=== PATIENT | female | born 1950 | race Caucasian/White ===

== ENCOUNTER → 2017-09-08 | Outpatient (CLI) | payer MEDICARE ==
--- NOTE | 2017-09-08 16:35 | WOMENS IMAGING REPORT ---
EXAM DESCRIPTION: 3D DX MAMMO BILAT; U/S BREAST UNILAT LIMITED COMPLETED DATE/TIME: 09/08/2017 11:01 am; 09/08/2017 12:49 pm REASON FOR STUDY: UNSPECIFIED LUMP IN BREAST; N63.0; LT BREAST LUMP N63 N63.0 UNSPECIFIED LUMP IN U NSPECIFIED BREAST COMPARISON: None. TECHNIQUE: Standard craniocaudal and mediolateral oblique views of each breast recorded using digita l acquisition and breast tomosynthesis. Additional left breast 90 mediolateral view Additional left breast ultrasound Next LIMITATIONS: None. FINDINGS: RIGHT BREAST MASSES: No suspicious masses. CALCIFICATIONS: Benign calcifications are present ARCHITECTURAL DISTORTION: None. DEVELOPING DENSITY: None. ASYMMETRY: None noted. OTHER: No other significant findings. LEFT BREAST MASSES: No suspicious masses. CALCIFICATIONS: Benign calcifications are present ARCHITECTURAL DISTORTION: None. DEVELOPING DENSITY: None. ASYMMETRY: None noted. OTHER: No other significant finding. Read with the assistance of CAD: .[facility] - R2 Cenova Version 1.3 .[facility] - R2 Cenova Version 1.3 .[facility] - R2 Cenova Version 2.4 .[facility] R2 Cenova Version 2.4 .COUNT INCLUDES [facility] - R2 Laboratory Clerk Version 9.2 Left breast ultrasound: Patient has a palpable abnormality in the left breast 12 to 1 o'clock position about 3 to 4 cm from t he nipple. Ultrasound of this area demonstrates no focal findings. No cysts. No masses. No worris ome acoustic absorption. IMPRESSION: No mammographic/ tomosynthesis evidence for malignancy right breast. No mammographic/ tomosynthesis or ultrasound evidence for malignancy left breast. BREAST DENSITY: c. The breasts are heterogeneously dense, which may obscure small masses. BIRAD: 2 Benign findings. RECOMMENDATION: RECOMMENDED FOLLOW UP: Please continue yearly bilateral screening mammography/ tomos ynthesis in August 2018 SPECIFIC INTERVENTION/IMAGING/CONSULTATION RECOMMENDED:No additional intervention/ imaging/consultati on needed at this time. COMMUNICATION:Patient notified by letter COMMENT: The patient has been notified of the results by letter per MQSA requirements. Additional no tification policies are in place for contacting patient with suspicious or incomplete findings. Quality ID #225: The [employer] recommends an annual screening mammogram for women aged 40 years or over. This facility utilizes a reminder system to ensure that all patients receive reminder letters, and/or direct phone calls for appointments. This includes reminders for routine scr eening mammograms, diagnostic mammograms, or other Breast Imaging Interventions when appropriate. Th is patient will be placed in the appropriate reminder system. The [employer] (ACR) has developed recommendations for screening MRI of the breast s in certain patient populations, to be used in conjunction with mammography. Breast MRI surveillanc e may be appropriate for women with more than 20% lifetime risk of developing breast cancer as deter mined by genetic testing, significant family history of the disease, or history of mantle radiation f or Hodgkins Disease. ACR Practice Guidelines 2008. DBT Technology DBT is a type of tomographic mammography. With conventional mammography, overlapping breast tissue ma y make lesions difficult to detect, even with good compression. DBT uses an x-ray tube that rotates a round the breast, taking images at different angles. These images are then combined to create thin sl ices of the breast that the radiologist can view as a 3D reconstruction. The [employer] unit can perform full-field digital mammograms (2D imaging); or DBT (3D imaging); or both, in a combination mode that quickly performs both the mammogram and the tomosynthesis scan while the breast is still compressed. PQRS 6045F: Fluoroscopic imaging is not utilized for breast tomosynthesis. TECHNICAL DOCUMENTATION: FINDING NUMBER: (1) ASSESSMENT: (1) JOB ID: [id number] [employer]- All Rights Reserved Reading location - IP/workstation name: [email or web address]
--- NOTE | 2017-09-08 16:35 | WOMENS IMAGING REPORT ---
EXAM DESCRIPTION: 3D DX MAMMO BILAT; U/S BREAST UNILAT LIMITED COMPLETED DATE/TIME: 09/08/2017 11:01 am; 09/08/2017 12:49 pm REASON FOR STUDY: UNSPECIFIED LUMP IN BREAST; N63.0; LT BREAST LUMP N63 N63.0 UNSPECIFIED LUMP IN U NSPECIFIED BREAST COMPARISON: None. TECHNIQUE: Standard craniocaudal and mediolateral oblique views of each breast recorded using digita l acquisition and breast tomosynthesis. Additional left breast 90 mediolateral view Additional left breast ultrasound Next LIMITATIONS: None. FINDINGS: RIGHT BREAST MASSES: No suspicious masses. CALCIFICATIONS: Benign calcifications are present ARCHITECTURAL DISTORTION: None. DEVELOPING DENSITY: None. ASYMMETRY: None noted. OTHER: No other significant findings. LEFT BREAST MASSES: No suspicious masses. CALCIFICATIONS: Benign calcifications are present ARCHITECTURAL DISTORTION: None. DEVELOPING DENSITY: None. ASYMMETRY: None noted. OTHER: No other significant finding. Read with the assistance of CAD: .[facility] - R2 Cenova Version 1.3 .[facility] Imaging - R2 Cenova Version 1.3 .[facility] Imaging - R2 Cenova Version 2.4 .[facility] - R2 Cenova Version 2.4 .[facility] - R2 Level Glass Forming Machine Operator Version 9.2 Left breast ultrasound: Patient has a palpable abnormality in the left breast 12 to 1 o'clock position about 3 to 4 cm from t he nipple. Ultrasound of this area demonstrates no focal findings. No cysts. No masses. No worris ome acoustic absorption. IMPRESSION: No mammographic/ tomosynthesis evidence for malignancy right breast. No mammographic/ tomosynthesis or ultrasound evidence for malignancy left breast. BREAST DENSITY: c. The breasts are heterogeneously dense, which may obscure small masses. BIRAD: 2 Benign findings. RECOMMENDATION: RECOMMENDED FOLLOW UP: Please continue yearly bilateral screening mammography/ tomos ynthesis in August 2018 SPECIFIC INTERVENTION/IMAGING/CONSULTATION RECOMMENDED:No additional intervention/ imaging/consultati on needed at this time. COMMUNICATION:Patient notified by letter COMMENT: The patient has been notified of the results by letter per MQSA requirements. Additional no tification policies are in place for contacting patient with suspicious or incomplete findings. Quality ID #225: The [employer] recommends an annual screening mammogram for women aged 40 years or over. This facility utilizes a reminder system to ensure that all patients receive reminder letters, and/or direct phone calls for appointments. This includes reminders for routine scr eening mammograms, diagnostic mammograms, or other Breast Imaging Interventions when appropriate. Th is patient will be placed in the appropriate reminder system. The [employer] (ACR) has developed recommendations for screening MRI of the breast s in certain patient populations, to be used in conjunction with mammography. Breast MRI surveillanc e may be appropriate for women with more than 20% lifetime risk of developing breast cancer as deter mined by genetic testing, significant family history of the disease, or history of mantle radiation f or Hodgkins Disease. ACR Practice Guidelines 2008. DBT Technology DBT is a type of tomographic mammography. With conventional mammography, overlapping breast tissue ma y make lesions difficult to detect, even with good compression. DBT uses an x-ray tube that rotates a round the breast, taking images at different angles. These images are then combined to create thin sl ices of the breast that the radiologist can view as a 3D reconstruction. The [employer] unit can perform full-field digital mammograms (2D imaging); or DBT (3D imaging); or both, in a combination mode that quickly performs both the mammogram and the tomosynthesis scan while the breast is still compressed. PQRS 6045F: Fluoroscopic imaging is not utilized for breast tomosynthesis. TECHNICAL DOCUMENTATION: FINDING NUMBER: (1) ASSESSMENT: (1) JOB ID: [id number] [employer]- All Rights Reserved Reading location - IP/workstation name: [email or web address]
== END ==
LOC: WI 10:54
PROVIDERS: ATTEND Physician Assistant
DX: Z12.31 Encounter for screening mammogram for malignant neoplasm of breast (principal); N63.0 Unspecified lump in unspecified breast
CPT/HCPCS: 76642; 77066; G0279; 77062

== ENCOUNTER → 2018-09-28 | Outpatient (CLI) | payer MEDICARE ==
--- NOTE | 2018-09-28 15:56 | RADIOLOGY REPORT (SQ) ---
EXAM DESCRIPTION: VENOUS UNILATERAL LOWER COMPLETED DATE/TIME: 09/28/2018 3:48 pm REASON FOR STUDY: RIGHT THIGH PAIN M79.651 PAIN IN RIGHT THIGH COMPARISON: None. TECHNIQUE: Dynamic and static whitley scale and color images acquired of the right leg venous system. S elected spectral images acquired with additional compression and augmentation maneuvers. The contrala teral common femoral vein and saphenofemoral junction were also imaged. Images stored on PACS. LIMITATIONS: None. FINDINGS: RIGHT COMMON FEMORAL: Normal phasicity, compression and augmentation. No visualized echogenic material on g ray scale. No defects on color images. FEMORAL: Normal compression and augmentation. No visualized echogenic material on whitley scale. No defe cts on color images. POPLITEAL: Normal compression, augmentation. No visualized echogenic material on whitley scale. No defec ts on color images. CALF VESSELS: Normal compression, augmentation. No visualized echogenic material on whitley scale. No de fects on color images. GSV and SSV: Normal compression, augmentation. No visualized echogenic material on whitley scale. No def ects on color images. ANY DEEP VENOUS INSUFFICIENCY: Not evaluated. ANY EVIDENCE OF POPLITEAL CYST: No. OTHER: No other significant finding. LEFT COMMON FEMORAL VEIN AND SAPHENOFEMORAL JUNCTION: Normal phasicity, compression and augmentation. No visualized echogenic material on whitley scale. No de fects on color images. IMPRESSION: NO EVIDENCE OF DVT OR SVT IN THE RIGHT LEG. TECHNICAL DOCUMENTATION: JOB ID: [id number] [employer] All Rights Reserved Reading location - IP/workstation name: [email or web address]
== END ==
LOC: SP 15:04
PROVIDERS: ATTEND Physician Assistant
DX: M79.651 Pain in right thigh (principal)
CPT/HCPCS: 93971

== ENCOUNTER → 2019-03-23 | Outpatient (CLI) | payer MEDICARE ==
--- NOTE | 2019-03-23 10:53 | WOMENS IMAGING REPORT ---
EXAM DESCRIPTION: 3D SCREENING MAMMO BILAT COMPLETED DATE/TIME: 03/23/2019 10:01 am REASON FOR STUDY: Z12.31 SCREENING MAMMO Z12.31 ENCNTR SCREEN MAMMOGRAM FOR MALIGNANT NEOPLASM OF B RE COMPARISON: 2018 EXAM PARAMETERS: Views: Standard craniocaudal and mediolateral oblique views of each breast recorded using digital acquisition and breast tomosynthesis. Read with the assistance of CAD. .[facility] - R2 Provider Relations Specialist Version 9.2 LIMITATIONS: Left positioning. FINDINGS: No suspicious masses, suspicious calcifications or architectural distortion. No areas of c oncern. IMPRESSION: NEGATIVE MAMMOGRAM. BIRADS 1. BREAST DENSITY: b. There are scattered areas of fibroglandular density. BIRAD: ASSESSMENT: 1 NEGATIVE RECOMMENDATION: ROUTINE SCREENING COMMENT: The patient has been notified of the results by letter per MQSA requirements. Additional no tification policies are in place for contacting patient with suspicious or incomplete findings. Quality ID #225: The [employer] recommends an annual screening mammogram for women aged 40 years or over. This facility utilizes a reminder system to ensure that all patients receive reminder letters, and/or direct phone calls for appointments. This includes reminders for routine scr eening mammograms, diagnostic mammograms, or other Breast Imaging Interventions when appropriate. Th is patient will be placed in the appropriate reminder system. TECHNICAL DOCUMENTATION: FINDING NUMBER: (1) ASSESSMENT: (1) JOB ID: [id number] [employer]- All Rights Reserved Reading location - IP/workstation name: [email or web address]
== END ==
LOC: WI 10:08
PROVIDERS: ATTEND Physician Assistant
DX: Z12.31 Encounter for screening mammogram for malignant neoplasm of breast (principal)
CPT/HCPCS: 77063; 77067

== ENCOUNTER 2019-11-11 13:39 | Emergency (ER) | payer MEDICARE ==
--- NOTE | 2019-11-11 14:04 | ER Document Report ---
ED Medical Screen (RME) - General Chief Complaint: Arm Pain Stated Complaint: arm pain Time Seen by Provider: 11/11/19 14:04 Primary Care Provider: MARSHALL WALTERS PA [Primary Care Provider] - Follow up as needed Mode of Arrival: Wheelchair Information source: Patient Notes: 69-year-old female presented to ED for infected right elbow. She states [facility] her [facility] here that she would need IV antibiotics. She is alert oriented respirations regular and unlabored speaking in full sentences. She is able to walk with a even steady gait. She states the medical history should all be in the chart and does not want to discuss it at this time. I have greeted and performed a rapid initial assessment of this patient. A comprehensive ED assessment and evaluation of the patient, analysis of test results and completion of medical decision making process will be conducted by an additional ED providers. TRAVEL OUTSIDE OF THE [place] IN LAST 30 DAYS: No Physical Exam - Vital signs Vitals: Temp Pulse Resp BP Pulse Ox 98.3 F 102 H 20 148/98 H 96 11/11/19 13:51 11/11/19 13:51 11/11/19 13:51 11/11/19 13:51 11/11/19 13:51 Course - Vital Signs Vital signs: Temp Pulse Resp BP Pulse Ox 98.3 F 102 H 20 148/98 H 96 11/11/19 13:51 11/11/19 13:51 11/11/19 13:51 11/11/19 13:51 11/11/19 13:51 Doctor's Discharge - Discharge Referrals: MARSHALL WALTERS PA [Primary Care Provider] - Follow up as needed
[2019-11-11] MEDS ORDERED: NORMAL SALINE 1000 ML 1,000 ML IV ONE (14:06)
[2019-11-11] MEDS ORDERED: LIDOCAINE 1%/EPINEPHRINE INJ 20 ML VIAL INJ ONE (14:34)
--- NOTE | 2019-11-11 14:39 | ER Document Report ---
ED Extremity Problem, Upper <ERINN NIEVES - Last Filed: 11/11/19 20:49> - General Mode of Arrival: Wheelchair Information source: Patient TRAVEL OUTSIDE OF THE [place] IN LAST 30 DAYS: No <RONNY MARTINEZ - Last Filed: 11/12/19 06:15> - General Chief Complaint: Arm Pain Stated Complaint: arm pain Time Seen by Provider: 11/11/19 14:04 Primary Care Provider: MARSHALL WALTERS PA [NO LOCAL MD] - Follow up as needed MANISH WALL DO [ACTIVE STAFF] - Follow up as needed Notes: HPI: 69-year-old female who presents today stating some nontraumatic pain to the right elbow starting yesterday. She denies any fevers or vomiting. She states it is just around the tip of the elbow. No history of diabetes. She believes it is slightly swollen. ROS: See HPI All other review of systems reviewed and otherwise negative Reviewed vital signs and nursing note as charted by RN. PHYSICAL EXAM: CONSTITUTIONAL: Alert and oriented and responds appropriately to questions. Well-appearing; well-nourished HEAD: Normocephalic; atraumatic CARD: Regular rate and rhythm; no murmurs; symmetric distal pulses RESP: Normal chest excursion without splinting or tachypnea; breath sounds clear and equal bilaterally ABD/GI: Normal bowel sounds; non-distended; soft, non-tender; no palpable organomegaly or masses BACK: The back appears normal and is non-tender to palpation EXT: Patient has some mild swelling to the right lateral elbow. Patient has full range of motion with full flexion and extension at the elbow. Some mild tenderness to the bursa of the right elbow with minimal surrounding erythema SKIN: See above NEURO: CN 2-12 intact; 5/5 bilateral upper and lower extremity strength with sensation intact to light touch PSYCH: The patient's mood and manner are appropriate. Grooming and personal hygiene are appropriate (RONNY MARTINEZ) - Related Data Allergies/Adverse Reactions: Unable to Assess Allergy (Unverified 11/11/19 18:40) Past Medical History - General Information source: Patient - Social History Smoking Status: Unknown if Ever Smoked Family History: Reviewed & Not Pertinent <RONNY MARTINEZ - Last Filed: 11/12/19 06:15> Physical Exam - Vital signs Vitals: Temp Pulse Resp BP Pulse Ox 98.3 F 102 H 20 148/98 H 96 11/11/19 13:51 11/11/19 13:51 11/11/19 13:51 11/11/19 13:51 11/11/19 13:51 Course - Laboratory Result Diagrams: 11/11/19 14:20 11/11/19 14:20 <ERINN NIEVES - Last Filed: 11/11/19 20:49> - Laboratory Result Diagrams: 11/11/19 14:20 11/11/19 14:20 <JUANRONNY - Last Filed: 11/12/19 06:15> - Re-evaluation Re-evalutation: 11/11/19 18:09 I assumed care of this patient, awaiting blood cultures and cell counts on bursa aspiration of the right elbow performed by Dr. Maldonado. Patient had over 20,000 red, approximately 1100 whites. Cultures are still pending. During the course of her stay here in the emergency department, this patient, with whom we had significant difficulty obtaining IV access, ripped out her IV to go to the bathroom. She did not receive the IV vancomycin. This patient does have a leukocytosis, but no significant shift. She is afebrile. She is not vomiting. I discussed appropriate coverage for community-acquired MRSA and other gram positives with clindamycin with Dr. Wall, on-call orthopedic surgeon. He ag yumiko that that sounded reasonable. Of course he recommends that the patient return to the ED with any worsening. This was explained to the patient. Otherwise I will send her with a prescription for clindamycin, she is to follow- up with Dr. Wall the beginning of the next week, return to the ED with worsening or new concerning symptoms of any sort. (ERINN NIEVES) 11/11/19 14:38 Given the above history and physical examination, with full range of motion of the elbow, afebrile, without trauma, I am concerned about the possibility of an infected bursa. We will obtain basic labs and I will perform an aspiration of the right bursa sac and start the patient on antibiotics. Will most likely consult orthopedics. 11/11/19 15:09 I did perform an aspiration of the right elbow bursa. Straw-colored blood- tinged fluid obtained. This was obtained on 1 attempt without complication. White blood cell count as recorded. Blood cultures have been sent. Awaiting results. I have provided the initial dose of antibiotics. (RONNY MARTINEZ) - Vital Signs Vital signs: Temp Pulse Resp BP Pulse Ox 98.4 F 62 12 130/72 H 98 11/11/19 18:35 11/11/19 18:35 11/11/19 18:35 11/11/19 18:35 11/11/19 18:35 - Laboratory Laboratory results interpreted by me: 11/11/19 11/11/19 11/11/19 14:20 14:20 14:20 WBC 13.2 H Lymph % (Auto) 5.3 L Absolute Neuts (auto) 11.5 H Seg Neutrophils % 87.5 H ESR 32 H Sodium 135.4 L Glucose 131 H C-Reactive Protein 11/11/19 14:20 WBC Lymph % (Auto) Absolute Neuts (auto) Seg Neutrophils % ESR Sodium Glucose C-Reactive Protein 41.7 H Procedures - Joint Aspiration Right Elbow Consent obtained: Yes Joint aspiration pre-procedure: Chloraprep applied Amount/type of drainage: 4 cc Number of attempts: 1 Complications: No <RONNY MARTINEZ - Last Filed: 11/12/19 06:15> - Joint Aspiration Right Elbow Notes: This was a right bursa aspiration (RONNY MARTINEZ) Discharge <ERINN NIEVES - Last Filed: 11/11/19 20:49> <RONNY MARTINEZ - Last Filed: 11/12/19 06:15> - Discharge Clinical Impression: Septic olecranon bursitis Qualifiers: Laterality: right Qualified Code(s): M71.121 - Other infective bursitis, right elbow Cellulitis Qualifiers: Site of cellulitis: extremity Site of cellulitis of extremity: upper extremity Laterality: right Qualified Code(s): L03.113 - Cellulitis of right upper limb Condition: Stable Disposition: HOME, SELF-CARE Instructions: Cellulitis ([facility]) Additional Instructions: It appears you have an infected bursa, for a small fluid-filled sac of your elbow, that has an infection in it. This infection is spread to the surrounding skin of your arm. It is very important you take all of the antibiotics as prescribed. If you develop increased pain, redness, fevers, vomiting, or any other new or concerning symptoms, please return immediately to the emergency department for evaluation. Otherwise, you can follow-up with Dr. Manish Wall, on-call orthopedist, at the beginning of next week. Prescriptions: Clindamycin HCl 300 mg PO TID #21 capsule Referrals: MARSHALL WALTERS PA [NO LOCAL MD] - Follow up as needed MANISH WALL DO [ACTIVE STAFF] - Follow up as needed
--- NOTE | 2019-11-11 14:44 | RADIOLOGY REPORT (SQ) ---
EXAM DESCRIPTION: ELBOW RIGHT OVER 2 VIEWS IMAGES COMPLETED DATE/TIME: 11/11/2019 2:20 pm REASON FOR STUDY: swelling infected COMPARISON: None. NUMBER OF VIEWS: Four views. TECHNIQUE: AP, lateral, and both oblique radiographic images acquired of the right elbow. LIMITATIONS: None. FINDINGS: MINERALIZATION: Normal. BONES: No acute fracture or dislocation. Mild ulnohumeral and radiohumeral joint osteoarthritis. Mi nimal cortical prominence of the medial epicondyle, which may be related to epicondylitis. No worris ome bone lesions. No aggressive periosteal reaction or cortical destruction. JOINT: No effusion. SOFT TISSUES: Olecranon/extensor surface soft tissue swelling. OTHER: No other significant finding. IMPRESSION: Olecranon/extensor extensor surface elbow soft tissue swelling without radiographic find ings of acute osteomyelitis or other acute osseous abnormality. TECHNICAL DOCUMENTATION: JOB ID: [id number] 2010 [employer]- All Rights Reserved Reading location - IP/workstation name: [email or web address]
[2019-11-11 14:57] LABS: ABSOLUTE BASOPHILS # (AUTO) 0.1 10^3/uL (0.0-0.2); ABSOLUTE EOSINOPHILS # (AUTO) 0.1 10^3/uL (0.0-0.6); ABSOLUTE LYMPHOCYTES (AUTO) 0.7 10^3/uL (0.5-4.7); ABSOLUTE MONOCYTES (AUTO) 0.7 10^3/uL (0.1-1.4); ABSOLUTE NEUT (AUTO) 11.5 10^3/uL (1.7-8.2); BASOPHILS % (AUTO) 0.5 % (0-2); EOSINOPHILS % (AUTO) 1.1 % (0-6); HEMATOCRIT 43.4 % (36.0-47.0); HEMOGLOBIN 14.8 g/dL (12.0-15.5); LYMPHOCYTES % (AUTO) 5.3 % (13-45); MEAN CORPUSCULAR HEMOGLOBIN 32.9 pg (27.0-33.4); MEAN CORPUSCULAR HGB CONC 34.1 g/dL (32.0-36.0); MEAN CORPUSCULAR VOLUME 96 fl (80-97); MONOCYTES % (AUTO) 5.6 % (3-13); PLATELET COUNT 229 10^3/uL (150-450); RED BLOOD COUNT 4.51 10^6/uL (3.72-5.28); RED CELL DISTRIBUTION WIDTH 13.5 % (11.5-14.0); SEGMENTED NEUTROPHILS % (AUTO) 87.5 % (42-78); TOTAL CELLS COUNTED % (AUTO) 100 %; WHITE BLOOD COUNT 13.2 10^3/uL (4.0-10.5)
[2019-11-11 15:11] LABS: ALBUMIN 4.5 g/dL (3.5-5.0); ALKALINE PHOSPHATASE 86 U/L (38-126); ANION GAP 6 (5-19); ASPARTATE AMINO TRANSFERASE 36 U/L (14-36); BILIRUBIN,DIRECT 0.2 mg/dL (0.0-0.4); BILIRUBIN,TOTAL 0.7 mg/dL (0.2-1.3); BLOOD UREA NITROGEN 19 mg/dL (7-20); CALCIUM 9.6 mg/dL (8.4-10.2); CARBON DIOXIDE 29 mmol/L (22-30); CHLORIDE 100 mmol/L (98-107); GLUCOSE 131 mg/dL (75-110); POTASSIUM 4.9 mmol/L (3.6-5.0); TOTAL PROTEIN 7.4 g/dL (6.3-8.2)
[2019-11-11] MEDS ORDERED: VANCOMYCIN HCL INJ 1000 MG VIAL IV ONE (15:11)
[2019-11-11 15:18] LABS: APPEARANCE,URINE SLIGHTLY-CLOUDY; BILIRUBIN,URINE NEGATIVE (NEGATIVE); COLOR,URINE YELLOW; GLUCOSE, URINE NEGATIVE (NEGATIVE); KETONES,URINE NEGATIVE (NEGATIVE); LEUKOCYTE ESTERASE,URINE NEGATIVE (NEGATIVE); NITRITE,URINE NEGATIVE (NEGATIVE); PROTEIN,URINE NEGATIVE (NEGATIVE); URINE SPECIFIC GRAVITY 1.016; UROBILINOGEN,URINE NEGATIVE mg/dL (<2.0)
[2019-11-11 16:10] LABS: FLUID APPEARANCE TURBID; FLUID COLOR RED; FLUID SOURCE ELBOW; FLUID TYPE SYNOVIAL; FLUID VISCOSITY SLIGHTLY VISCOUS
[2019-11-11] MEDS ORDERED: CLINDAMYCIN PHOSPHATE INJ 300 MG/2 ML SDV IM ONE (18:08)
[2019-11-11 18:37] VITALS: BP 130/72
== END 2019-11-11 18:30 | disposition home or self-care (01) ==
LOC: ER 13:39
DX: M70.21 Olecranon bursitis, right elbow (principal); L03.113 Cellulitis of right upper limb
CPT/HCPCS: 99283; 96372; 96361; 96365; 96366; 36415; 87040; 87205; 87070; 85025; 85652; 89050; 87075; 86140; 87077; 80053; 81001; 87150 ×26; 73080; 20605; J3490; J7030; J3370; 87186

== ENCOUNTER 2019-11-13 17:14 | Inpatient (IN) | payer MEDICARE ==
--- NOTE | 2019-11-13 17:31 | ER Document Report ---
ED Medical Screen (RME) - General Chief Complaint: Wound Infection Stated Complaint: POSSIBLE ARM INFECTION Time Seen by Provider: 11/13/19 17:29 Primary Care Provider: MIKE GONZALEZ MD [Primary Care Provider] - Follow up as needed Mode of Arrival: Ambulatory Information source: Patient Notes: 69-year-old female presented to ED for increasing infection pain and swelling to her right elbow. She was seen on Wednesday and had an I&D done of her elbow with fluid removed. She now has redness down to her wrist elbow is much larger and she states that it is much more painful. Patient states that the antibiotics they gave her are not doing her any good and she is having more pain. Patient is alert oriented respirations regular nonlabored speaking in full sentences. I have greeted and performed a rapid initial assessment of this patient. A comprehensive ED assessment and evaluation of the patient, analysis of test results and completion of medical decision making process will be conducted by an additional ED providers. TRAVEL OUTSIDE OF THE [place] IN LAST 30 DAYS: No - Related Data Allergies/Adverse Reactions: Unable to Assess Allergy (Unverified 11/11/19 18:40) Physical Exam - Vital signs Vitals: Temp Pulse Resp BP Pulse Ox 97.4 F 105 H 18 131/85 H 94 11/13/19 17:23 11/13/19 17:23 11/13/19 17:23 11/13/19 17:23 11/13/19 17:23 Course - Vital Signs Vital signs: Temp Pulse Resp BP Pulse Ox 97.4 F 105 H 18 131/85 H 94 11/13/19 17:23 11/13/19 17:23 11/13/19 17:23 11/13/19 17:23 11/13/19 17:23 Doctor's Discharge - Discharge Referrals: MIKE GONZALEZ MD [Primary Care Provider] - Follow up as needed
[2019-11-13 17:57] LABS: ABSOLUTE BASOPHILS # (AUTO) 0.1 10^3/uL (0.0-0.2); ABSOLUTE EOSINOPHILS # (AUTO) 0.5 10^3/uL (0.0-0.6); ABSOLUTE LYMPHOCYTES (AUTO) 1.2 10^3/uL (0.5-4.7); ABSOLUTE MONOCYTES (AUTO) 0.9 10^3/uL (0.1-1.4); ABSOLUTE NEUT (AUTO) 10.9 10^3/uL (1.7-8.2); BASOPHILS % (AUTO) 0.4 % (0-2); EOSINOPHILS % (AUTO) 3.9 % (0-6); HEMATOCRIT 43.6 % (36.0-47.0); HEMOGLOBIN 14.8 g/dL (12.0-15.5); LYMPHOCYTES % (AUTO) 8.9 % (13-45); MEAN CORPUSCULAR HEMOGLOBIN 33.1 pg (27.0-33.4); MEAN CORPUSCULAR HGB CONC 34.1 g/dL (32.0-36.0); MEAN CORPUSCULAR VOLUME 97 fl (80-97); MONOCYTES % (AUTO) 6.7 % (3-13); PLATELET COUNT 322 10^3/uL (150-450); RED BLOOD COUNT 4.49 10^6/uL (3.72-5.28); RED CELL DISTRIBUTION WIDTH 13.7 % (11.5-14.0); SEGMENTED NEUTROPHILS % (AUTO) 80.1 % (42-78); TOTAL CELLS COUNTED % (AUTO) 100 %; WHITE BLOOD COUNT 13.6 10^3/uL (4.0-10.5)
--- NOTE | 2019-11-13 18:01 | RADIOLOGY REPORT (SQ) ---
EXAM DESCRIPTION: ELBOW RIGHT OVER 2 VIEWS IMAGES COMPLETED DATE/TIME: 11/13/2019 5:51 pm REASON FOR STUDY: Red swollen painful right upper extremity COMPARISON: None. NUMBER OF VIEWS: Four views. TECHNIQUE: AP, lateral, and both oblique radiographic images acquired of the right elbow. LIMITATIONS: None. FINDINGS: MINERALIZATION: Normal. BONES: No acute fracture or dislocation. No worrisome bone lesions. JOINT: No effusion. SOFT TISSUES: Dorsal swelling over the olecranon. OTHER: No other significant finding. IMPRESSION: Dorsal swelling over the olecranon. Possible bursitis. TECHNICAL DOCUMENTATION: JOB ID: [id number] 2010 [employer]- All Rights Reserved Reading location - IP/workstation name: [email or web address]
[2019-11-13 18:48] LABS: ERYTHROCYTE SEDIMENTATION RATE 74 mm/hr (0-30)
[2019-11-13 19:06] LABS: ALBUMIN 4.3 g/dL (3.5-5.0); ALKALINE PHOSPHATASE 114 U/L (38-126); ANION GAP 9 (5-19); ASPARTATE AMINO TRANSFERASE 32 U/L (14-36); BILIRUBIN,DIRECT 0.2 mg/dL (0.0-0.4); BILIRUBIN,TOTAL 0.4 mg/dL (0.2-1.3); BLOOD UREA NITROGEN 33 mg/dL (7-20); CALCIUM 9.5 mg/dL (8.4-10.2); CARBON DIOXIDE 28 mmol/L (22-30); CHLORIDE 100 mmol/L (98-107); GLUCOSE 132 mg/dL (75-110); TOTAL PROTEIN 7.3 g/dL (6.3-8.2)
[2019-11-13 19:19] LABS: C-REACTIVE PROTEIN 200.6 mg/L (<10.0)
[2019-11-13] MEDS ORDERED: VANCOMYCIN HCL INJ 1000 MG VIAL IV ONE (21:56)
[2019-11-13] MEDS ORDERED: RINGERS SOLUTION,LACTATED 1,000 ML IV ONE (22:01)
--- NOTE | 2019-11-13 22:01 | ER Document Report ---
ED General - General Chief Complaint: Wound Infection Stated Complaint: POSSIBLE ARM INFECTION Time Seen by Provider: 11/13/19 17:29 Primary Care Provider: MIKE GONZALEZ MD [Primary Care Provider] - Follow up as needed Mode of Arrival: Ambulatory Notes: 69-year-old female [id number] presents with worsening right arm swelling and elbow swelling that is now going down toward her wrist and up toward her armpit. She was seen here 2 days ago for a septic bursitis, which was tapped, and she refused IV antibiotics pulled out her IV was discharged with clindamycin after discussion with orthopedics. Blood cultures were sent as were cultures of the fluid aspirated from her right olecranon bursa. She does not have diabetes. She says that the medicine is making her dizzy and she cannot take it anymore. She also says she has a fever. Afebrile here. The patient has NO history of travel to high-risk locations for COVID-19 or contact with persons under investigation for or confirmed positive for COVID-19. TRAVEL OUTSIDE OF THE [place] IN LAST 30 DAYS: No - Related Data Allergies/Adverse Reactions: celecoxib Allergy (Verified 11/13/19 17:35) duloxetine Allergy (Verified 11/13/19 17:35) naproxen Allergy (Verified 11/13/19 17:35) Past Medical History - General Information source: Patient - Social History Smoking Status: Current Every Day Smoker Family History: Reviewed & Not Pertinent Patient has homicidal ideation: No Review of Systems - Review of Systems Notes: REVIEW OF SYSTEMS GEN: Fever chills and dizziness ENT: Denies sore throat, nasal discharge, ear pain EYES: Denies blurry vision, eye pain, discharge CV: Denies chest pain, palpitations, edema RESP: Denies cough, shortness of breath, wheezing GI: Denies abdominal pain, nausea, vomiting, diarrhea MSK: Elbow arm pain SKIN: Denies rash, skin lesions LYMPH: Denies swollen glands/lymph nodes NEURO: Denies headache, focal weakness or numbness, dizziness PSYCH: Denies depression, suicidal or homicidal ideation PHYSICAL EXAMINATION General: No acute distress, well-nourished Head: Atraumatic, normocephalic ENT: Mouth normal, oropharynx moist, no exudates or tonsillar enlargement Eyes: Conjunctiva normal, pupils equal, lids normal Neck: No JVD, supple, no guarding CVS: Normal rate, regular rhythm, no murmurs Resp: No resp distress, equal and normal breath sounds bilaterally GI: Nondistended, soft, no tenderness to palpation, no rebound or guarding Ext: Area of nonpalpable erythema from the volar forearm wrist encircling the right elbow and streaking up the medial right biceps region without lymphadeno randy. Positive tenderness, there is no drainage or fluctuance over the bursa itself. Back: No CVA or midline TTP Skin: No rash, warm Lymphatic: No lymphadeopathy noted Neuro: Awake, alert. Face symmetric. GCS 15. Physical Exam - Vital signs Vitals: Temp Pulse Resp BP Pulse Ox 97.4 F 105 H 18 131/85 H 94 11/13/19 17:23 11/13/19 17:23 11/13/19 17:23 11/13/19 17:23 11/13/19 17:23 Course - Re-evaluation Re-evalutation: 11/13/19 21:59 Septic bursitis with lymphangitis refractory to aspiration and p.o. antibiotics crossing the joint, has tachycardia and leukocytosis as her s criteria she has at this time, but will require IV Vanco elevation and admission. Will outline area, elevate the arm and discussed with Gus for admission. In looking at her cultures from yesterday there is nothing going out of the bursa but she had 2 different both staph and strep growing out of her blood cultures unclear if this is contaminant but will need sensitivities. Volume resuscitate as well. 11/13/19 22:01 11/13/19 22:32 Discussed with Gus who accepts and ask for Ortho consult Discussed with Louise who will see in the morning and agrees with plan - Vital Signs Vital signs: Temp Pulse Resp BP Pulse Ox 97.4 F 105 H 18 131/85 H 94 11/13/19 17:28 11/13/19 17:23 11/13/19 17:23 11/13/19 17:23 11/13/19 17:23 - Laboratory Result Diagrams: 11/13/19 17:31 11/13/19 17:45 Laboratory results interpreted by me: 11/13/19 11/13/19 17:31 17:45 WBC 13.6 H Lymph % (Auto) 8.9 L Absolute Neuts (auto) 10.9 H Seg Neutrophils % 80.1 H ESR 74 H BUN 33 H Creatinine 1.34 H Est GFR ( Amer) 47 L Est GFR (MDRD) Non-Af 39 L Glucose 132 H C-Reactive Protein 200.6 H Critical Care Note - Critical Care Note Total time excluding time spent on procedures (mins): 31 Comments: The above patient is critically ill. Not including procedures, but including direct re-evaluations, speaking with patient and/or consultants, interpreting results, and documenting, I spent the total amount of minute listed listed above on critical care time Discharge - Discharge Clinical Impression: Septic olecranon bursitis Qualifiers: Laterality: right Qualified Code(s): M71.121 - Other infective bursitis, right elbow Sepsis Qualifiers: Sepsis type: sepsis due to unspecified organism Sepsis acute organ dysfunction status: without acute organ dysfunction Qualified Code(s): A41.9 - Sepsis, unspecified organism Condition: Fair Disposition: ADMITTED INPATIENT Admitting Provider: Gus Unit Admitted: Medical Floor Referrals: MIKE GONZALEZ MD [Primary Care Provider] - Follow up as needed
[2019-11-13] MEDS ORDERED: OXYCODONE-ACETAMINOPHEN 5-325 MG TABLET PO ONE (22:31)
[2019-11-13] MEDS ORDERED: ACETAMINOPHEN 325 MG TABLET PO PRN (22:33)
[2019-11-13] MEDS ORDERED: AMPICILLIN SOD/SULBACTAM 3 GM VIAL IV PRN (22:44)
[2019-11-13 23:48] LABS: ANION GAP 7 (5-19); BLOOD UREA NITROGEN 37 mg/dL (7-20); CALCIUM 8.9 mg/dL (8.4-10.2); CARBON DIOXIDE 25 mmol/L (22-30); CHLORIDE 103 mmol/L (98-107); GLUCOSE 136 mg/dL (75-110); POTASSIUM 4.3 mmol/L (3.6-5.0)
[2019-11-14] MEDS ORDERED: AMPICILLIN SODIUM/SULBACTAM NA 3 GM in NORMAL SALINE 100 ML IV SCH ×2
[2019-11-14] MEDS ORDERED: RINGERS SOLUTION,LACTATED 1,000 ML IV ONE (02:15)
[2019-11-14] MEDS: AMPICILLIN SODIUM/SULBACTAM NA 3 GM in NORMAL SALINE 100 ML IV SCH ×4 (02:22→20:17)
[2019-11-14] MEDS: ONDANSETRON ODT 4 MG TAB (6 TAB/ER DISP) PO SCH ×5 (02:36→23:02)
[2019-11-14] MEDS: OXYCODONE-ACETAMINOPHEN 5-325 MG TABLET PO PRN ×5 (02:37→23:10)
[2019-11-14] MEDS: PANTOPRAZOLE SODIUM 20 MG TABLET.DR PO SCH (05:34)
[2019-11-14] MEDS: NORMAL SALINE 1000 ML 1,000 ML IV PRN (05:34)
[2019-11-14 06:10] LABS: ABSOLUTE EOSINOPHILS # (AUTO) 0.6 10^3/uL (0.0-0.6); ABSOLUTE LYMPHOCYTES (AUTO) 1.4 10^3/uL (0.5-4.7); ABSOLUTE NEUT (AUTO) 6.9 10^3/uL (1.7-8.2); BASOPHILS % (AUTO) 0.4 % (0-2); EOSINOPHILS % (AUTO) 6.2 % (0-6); HEMATOCRIT 38.3 % (36.0-47.0); HEMOGLOBIN 12.9 g/dL (12.0-15.5); LYMPHOCYTES % (AUTO) 13.7 % (13-45); MEAN CORPUSCULAR HEMOGLOBIN 32.8 pg (27.0-33.4); MEAN CORPUSCULAR HGB CONC 33.8 g/dL (32.0-36.0); MEAN CORPUSCULAR VOLUME 97 fl (80-97); PLATELET COUNT 240 10^3/uL (150-450); RED BLOOD COUNT 3.95 10^6/uL (3.72-5.28); RED CELL DISTRIBUTION WIDTH 13.4 % (11.5-14.0); SEGMENTED NEUTROPHILS % (AUTO) 69.7 % (42-78); TOTAL CELLS COUNTED % (AUTO) 100 %
--- NOTE | 2019-11-14 07:19 | PDOC CONSULTATION ---
Consultation Consult Date: 11/14/19 Provider Consulted: LEWIS RODRIGUEZ History of Present Illness Admission Date/PCP: 11/13/19 22:46 MIKE GONZALEZ MD Patient complains of: Right arm pain and swelling History of Present Illness: AUDIE PETERSEN is a 69 year old female who developed swelling of her right arm on this past 11/10/2019. She was seen in emergency room the following day where she was found to have olecranon bursitis aspiration was performed but cultures up to this point have been negative. During her ER visit her IV was pulled and thus was unable to obtain IV antibiotics and subsequently started on p.o. antibiotics. Over the next 24-40 hours patient's redness and swelling w orsened. She states since starting the IV antibiotics yesterday this has shown improvement. It did extend down to the wrist which is now improved as well. Denies any pain in the elbow. Denies trauma. Current pain 2/5. Denies fever chills or sweats this morning. Although states she did have a fever upon presentation emergency room despite remaining afebrile. Past Medical History Cardiac Medical History: Reports: Hypertension Musculoskeltal Medical History: Reports: Arthritis Psychiatric Medical History: Denies: Depression Social History Smoking Status: Current Every Day Smoker Cigarettes Packs Per Day: 1 Electronic Cigarette use?: No Number of Years Smokin Last Time Smoked: 11/13/19 Frequency of Alcohol Use: Rare Hx Recreational Drug Use: No Drugs: None Hx Prescription Drug Abuse: No Family History Family History: Reviewed & Not Pertinent Parental Family History Reviewed: No Children Family History Reviewed: No Sibling(s) Family History Reviewed.: No Medication/Allergy Home Medications: Clindamycin HCl 300 mg PO TID #21 capsule 11/11/19 Albuterol Sulfate [Proventil Hfa] 6.7 puff PO Q4 PRN 11/14/19 Cyanocobalamin (Vitamin B-12) [B-12] 2,500 mcg SL DAILY 11/14/19 Gabapentin [Neurontin 300 mg Capsule] 300 mg PO Q8 11/14/19 Levorphanol Tartrate 3 tab PO TID 11/14/19 Loratadine [Allergy Relief] 10 mg PO DAILY 11/14/19 Meloxicam [Mobic] 15 mg PO BID 11/14/19 Metoprolol Succinate [Toprol Xl 50 mg Tab.sr] 50 mg PO DAILY 11/14/19 Multivit-Min/Iron/Folic/Lutein [Centrum Silver Women Tablet] 1 each PO 11/14/19 Pantoprazole Sodium [Protonix [address] Tablet] 40 mg PO QAMPM 11/14/19 Allergies/Adverse Reactions: celecoxib Allergy (Verified 11/13/19 17:35) duloxetine Allergy (Verified 11/13/19 17:35) naproxen Allergy (Verified 11/13/19 17:35) Review of Systems Constitutional: ABSENT: chills, fever(s), headache(s), weight gain, weight loss Eyes: ABSENT: visual disturbances Ears: ABSENT: hearing changes Cardiovascular: ABSENT: chest pain, dyspnea on exertion, edema, orthropnea, palpitations Respiratory: ABSENT: cough, hemoptysis Gastrointestinal: ABSENT: abdominal pain, constipation, diarrhea, hematemesis, hematochezia, nausea, vomiting Genitourinary: ABSENT: dysuria, hematuria Musculoskeletal: PRESENT: as per HPI Integumentary: ABSENT: rash, wounds Neurological: ABSENT: abnormal gait, abnormal speech, confusion, dizziness, focal weakness, syncope Psychiatric: ABSENT: anxiety, depression, homidical ideation, suicidal ideation Endocrine: ABSENT: cold intolerance, heat intolerance, menstrual abnormalities, polydipsia, polyuria Hematologic/Lymphatic: ABSENT: easy bleeding, easy bruising, lymphadenopathy Physical Exam Vital Signs: Temp Pulse Resp BP Pulse Ox 97.7 F 83 17 111/51 L 93 11/14/19 00:46 11/14/19 00:46 11/14/19 00:46 11/14/19 00:46 11/14/19 00:46 Intake & Output 11/13/19 11/14/19 11/15/19 06:59 06:59 06:59 Intake Total 1100 Output Total 200 Balance 900 Weight 87.3 kg General appearance: PRESENT: no acute distress, well-developed, well-nourished Head exam: PRESENT: atraumatic, normocephalic Eye exam: PRESENT: conjunctiva pink, EOMI, PERRLA. ABSENT: scleral icterus Ear exam: PRESENT: normal external ear exam Mouth exam: PRESENT: moist, tongue midline Neck exam: PRESENT: full ROM. ABSENT: carotid bruit, JVD, lymphadenopathy, thyromegaly Respiratory exam: PRESENT: unlabored Cardiovascular exam: PRESENT: RRR. ABSENT: diastolic murmur, rubs, systolic murmur Pulses: PRESENT: normal dorsalis pedis pul, +2 pedal pulses bilateral Vascular exam: PRESENT: normal capillary refill GI/Abdominal exam: PRESENT: normal bowel sounds, soft. ABSENT: distended, guarding, mass, organolmegaly, rebound, tenderness Rectal exam: PRESENT: deferred Musculoskeletal exam: PRESENT: other - Right upper extremity: Erythema noted along the medial aspect at the level of the elbow and forearm. Erythema notably improved compared to prior demarcation. Small amount of swelling along olecranon bursa no palpable fluctuance or expressible drainage through the prior aspiration sites. Full elbow and wrist range of motion without discomfort. No palpable fluctuance throughout the extremity. No sensory deficits. Full hand range of motion. Neurological exam: PRESENT: alert, awake, oriented to person, oriented to place, oriented to time, oriented to situation, CN II-XII grossly intact. ABSENT: motor sensory deficit Psychiatric exam: PRESENT: appropriate affect, normal mood. ABSENT: homicidal ideation, suicidal ideation Skin exam: PRESENT: dry, intact, warm. ABSENT: cyanosis, rash Results Laboratory Results: 11/14/19 05:36 11/13/19 23:18 11/13/19 11/13/19 11/13/19 17:31 17:45 23:18 WBC 13.6 H RBC 4.49 Hgb 14.8 Hct 43.6 MCV 97 MCH 33.1 MCHC 34.1 RDW 13.7 Plt Count 322 Seg Neutrophils % 80.1 H Sodium 137.3 134.6 L Potassium 4.0 4.3 Chloride 100 103 Carbon Dioxide 28 25 Anion Gap 9 7 BUN 33 H 37 H Creatinine 1.34 H 1.52 H Est GFR ( Amer) 47 L 41 L Glucose 132 H 136 H Calcium 9.5 8.9 Total Bilirubin 0.4 AST 32 Alkaline Phosphatase 114 C-Reactive Protein 200.6 H Total Protein 7.3 Albumin 4.3 11/14/19 05:36 WBC 10.0 RBC 3.95 Hgb 12.9 Hct 38.3 MCV 97 MCH 32.8 MCHC 33.8 RDW 13.4 Plt Count 240 Seg Neutrophils % 69.7 Sodium Potassium Chloride Carbon Dioxide Anion Gap BUN Creatinine Est GFR ( Amer) Glucose Calcium Total Bilirubin AST Alkaline Phosphatase C-Reactive Protein Total Protein Albumin Impressions: Elbow X-Ray 11/13/19 17:32 IMPRESSION: Dorsal swelling over the olecranon. Possible bursitis. Status: Image reviewed by me - I have reviewed patient's radiographs consistent with soft tissue swelling no evidence of intra-articular effusion. No osseous abnormality. Assessment & Plan - Diagnosis (1) Cellulitis Qualifiers: Site of cellulitis of extremity: upper extremity Laterality: right Is this a current diagnosis for this admission?: Yes Plan: Patient has findings of cellulitis of the right upper extremity there is possible small underlying olecranon bursitis but not significant fluid collection to warrant operative intervention. This is likely to resolve with IV antibiotics and she has seen actual improvement upon admission in the past 16 hours. At this point would recommend continuing IV antibiotics. Currently no indication for operative intervention although there is the possibility of worsening olecranon bursitis is but prior to invasive treatment would allow it to demarcate itself.
--- NOTE | 2019-11-14 09:18 | PDOC H&P ---
History of Present Illness Admission Date/PCP: 11/13/19 22:46 MIKE GONZALEZ MD Patient complains of: Right elbow pain and the redness History of Present Illness: AUDIE PETERSEN is a 69 year old female This is a 69-year-old female's with a history of the fibromyalgia chronic pain history of the hypertensions history of the major depression's history of the arthritis came to the emergency department 2 days back with a complaint for right elbow pain with diagnosed with olecranon bursitisAnd remove the fluid from there and patient have a some redness patient refused with IV antibiotic initially put in the clindamycin's Patient is back to the emergency department again because the redness is all increasing the more swelling patient is giving the 1 dose of vancomycin and start IV Unasyn and patient is feeling much better Patient is fluid from the elbow is no growth but 1 blood cultures positive for gram-positive Patient having no fever no chills patient's CRP is elevated white count is elevated Patient's kidney functions the creatinine is also elevated patient's last creatinine was 0.8 doing back in February in my office Patient's denied any chest pain no short of breath When I saw the patient in the floor patient is feeling much better patient seen by the orthopedic surgery suggest no need for any interventions Past Medical History Cardiac Medical History: Reports: Hypertension GI Medical History: Reports: Gastroesophageal Reflux Disease Musculoskeltal Medical History: Reports: Arthritis, Fibromyalgia Psychiatric Medical History: Reports: Depression Past Surgical History Past Surgical History: Reports: Cholecystectomy, Hysterectomy Social History Information Source: Patient Smoking Status: Current Every Day Smoker Cigarettes Packs Per Day: 1 Electronic Cigarette use?: No Number of Years Smokin Last Time Smoked: 11/13/19 Frequency of Alcohol Use: Rare Hx Recreational Drug Use: No Drugs: None Hx Prescription Drug Abuse: No Family History Family History: Reviewed & Not Pertinent Parental Family History Reviewed: Yes Children Family History Reviewed: Yes Sibling(s) Family History Reviewed.: Yes Medication/Allergy Home Medications: Clindamycin HCl 300 mg PO TID #21 capsule 11/11/19 Albuterol Sulfate [Proventil Hfa] 6.7 puff PO Q4 PRN 11/14/19 Cyanocobalamin (Vitamin B-12) [B-12] 2,500 mcg SL DAILY 11/14/19 Gabapentin [Neurontin 300 mg Capsule] 300 mg PO Q8 11/14/19 Levorphanol Tartrate 3 tab PO TID 11/14/19 Loratadine [Allergy Relief] 10 mg PO DAILY 11/14/19 Meloxicam [Mobic] 15 mg PO BID 11/14/19 Metoprolol Succinate [Toprol Xl 50 mg Tab.sr] 50 mg PO DAILY 11/14/19 Multivit-Min/Iron/Folic/Lutein [Centrum Silver Women Tablet] 1 each PO 11/14/19 Pantoprazole Sodium [Protonix [address] Tablet] 40 mg PO QAMPM 11/14/19 Allergies/Adverse Reactions: celecoxib Allergy (Verified 11/13/19 17:35) duloxetine Allergy (Verified 11/13/19 17:35) naproxen Allergy (Verified 11/13/19 17:35) Review of Systems Constitutional: ABSENT: chills, fever(s), headache(s), weight gain, weight loss Eyes: ABSENT: visual disturbances Ears: ABSENT: hearing changes Cardiovascular: ABSENT: chest pain, dyspnea on exertion, edema, orthropnea, palpitations Respiratory: ABSENT: cough, hemoptysis Gastrointestinal: ABSENT: abdominal pain, constipation, diarrhea, hematemesis, hematochezia, nausea, vomiting Genitourinary: ABSENT: dysuria, hematuria Musculoskeletal: ABSENT: joint swelling Integumentary: ABSENT: rash, wounds Neurological: ABSENT: abnormal gait, abnormal speech, confusion, dizziness, focal weakness, syncope Psychiatric: ABSENT: anxiety, depression, homidical ideation, suicidal ideation Endocrine: ABSENT: cold intolerance, heat intolerance, menstrual abnormalities, polydipsia, polyuria Hematologic/Lymphatic: ABSENT: easy bleeding, easy bruising, lymphadenopathy Physical Exam Vital Signs: Temp Pulse Resp BP Pulse Ox 97.7 F 94 20 136/65 H 94 11/14/19 07:37 11/14/19 07:37 11/14/19 07:37 11/14/19 07:37 11/14/19 07:37 Intake & Output 11/13/19 11/14/19 11/15/19 06:59 06:59 06:59 Intake Total 1100 Output Total 200 Balance 900 Weight 87.3 kg General appearance: PRESENT: no acute distress, well-developed, well-nourished Head exam: PRESENT: atraumatic, normocephalic Eye exam: PRESENT: conjunctiva pink, EOMI, PERRLA. ABSENT: scleral icterus Ear exam: PRESENT: normal external ear exam Mouth exam: PRESENT: moist, tongue midline Neck exam: PRESENT: full ROM. ABSENT: carotid bruit, JVD, lymphadenopathy, thyromegaly Respiratory exam: PRESENT: clear to auscultation edu Cardiovascular exam: PRESENT: RRR. ABSENT: diastolic murmur, rubs, systolic m urmur Pulses: PRESENT: normal dorsalis pedis pul, +2 pedal pulses bilateral Vascular exam: PRESENT: normal capillary refill GI/Abdominal exam: PRESENT: normal bowel sounds, soft. ABSENT: distended, guarding, mass, organolmegaly, rebound, tenderness Rectal exam: PRESENT: deferred Extremities exam: ABSENT: pedal edema Additional comments: Right elbow and arm mild redness is present with some tenderness Neurological exam: PRESENT: alert, awake, oriented to person, oriented to place, oriented to time, oriented to situation, CN II-XII grossly intact. ABSENT: motor sensory deficit Psychiatric exam: PRESENT: appropriate affect, normal mood. ABSENT: homicidal ideation, suicidal ideation Skin exam: PRESENT: dry, intact, warm. ABSENT: cyanosis, rash Results Laboratory Results: 11/14/19 05:36 11/13/19 23:18 11/13/19 11/13/19 11/13/19 17:31 17:45 23:18 WBC 13.6 H RBC 4.49 Hgb 14.8 Hct 43.6 MCV 97 MCH 33.1 MCHC 34.1 RDW 13.7 Plt Count 322 Seg Neutrophils % 80.1 H Sodium 137.3 134.6 L Potassium 4.0 4.3 Chloride 100 103 Carbon Dioxide 28 25 Anion Gap 9 7 BUN 33 H 37 H Creatinine 1.34 H 1.52 H Est GFR ( Amer) 47 L 41 L Glucose 132 H 136 H Calcium 9.5 8.9 Total Bilirubin 0.4 AST 32 Alkaline Phosphatase 114 C-Reactive Protein 200.6 H Total Protein 7.3 Albumin 4.3 11/14/19 05:36 WBC 10.0 RBC 3.95 Hgb 12.9 Hct 38.3 MCV 97 MCH 32.8 MCHC 33.8 RDW 13.4 Plt Count 240 Seg Neutrophils % 69.7 Sodium Potassium Chloride Carbon Dioxide Anion Gap BUN Creatinine Est GFR ( Amer) Glucose Calcium Total Bilirubin AST Alkaline Phosphatase C-Reactive Protein Total Protein Albumin Impressions: Elbow X-Ray 11/13/19 17:32 IMPRESSION: Dorsal swelling over the olecranon. Possible bursitis. Assessment & Plan - Diagnosis (1) Cellulitis Qualifiers: Site of cellulitis of extremity: upper extremity Laterality: right Is this a current diagnosis for this admission?: Yes Plan: Continues the IV antibiotic (2) Benign essential HTN Is this a current diagnosis for this admission?: Yes Plan: Continues the metoprolol (3) Renal failure Qualifiers: Renal failure chronicity: acute Is this a current diagnosis for this admission?: Yes Plan: Continues the IV fluid will get the ultrasound for the kidney consult nephrology will continues IV Unasyn hold the vancomycin's We hold the meloxicam (4) Fibromyalgia Is this a current diagnosis for this admission?: Yes Plan: Patient is currently see the courtroom clerk as outpatient (5) Chronic pain syndrome Is this a current diagnosis for this admission?: Yes Plan: Continues the Percocet as needed and gabapentin (6) Arthritis Is this a current diagnosis for this admission?: Yes (7) Major depression Qualifiers: Major depression recurrence: unspecified whether recurrent Major depression episode severity: moderate Is this a current diagnosis for this admission?: Yes Plan: Continues to current medications (8) Chronic obstructive pulmonary disease Qualifiers: Emphysema type: unspecified Is this a current diagnosis for this admission?: Yes Plan: PRN nebulizer treatments (9) Smoker Is this a current diagnosis for this admission?: Yes Plan: Discussed with the patient about smoking counseling (10) Septic olecranon bursitis Qualifiers: Laterality: right Qualified Code(s): M71.121 - Other infective bursitis, right elbow Is this a current diagnosis for this admission?: Yes Plan: Currently all stable no need for interventions follow-up with the orthopedic surgery (11) Positive blood culture Is this a current diagnosis for this admission?: Yes Plan: Blood sugar 1 culture is +1 is negative will continues IV antibiotic repeat the blood cultures - Time Time Spent: 50 to 70 Minutes Smoking Cessation Education: over 10 minutes Medications reviewed and adjusted accordingly: Yes Anticipated discharge: Home Within: Other - Inpatient Certification Based on my medical assessment, after consideration of the patient's comorbidities, presenting symptoms, or acuity I expect that the services needed warrant INPATIENT care.: Yes I certify that my determination is in accordance with my understanding of Medicare's requirements for reasonable and necessary INPATIENT services [42 CFR 412.3e].: Yes Medical Necessity: Failure to Improve With Outpatient Therapy, Need For IV Fluids, Need for IV Antibiotics Post Hospital Care: D/C Recycling Collections Driver Documentation - Plan Summary Plan Summary: See MD orders
[2019-11-14] MEDS: LORATADINE 10 MG TABLET PO SCH (09:53)
[2019-11-14] MEDS: CYANOCOBALAMIN (VITAMIN B-12) 1,000 MCG TABLET PO SCH (09:53)
[2019-11-14] MEDS: METOPROLOL SUCCINATE 50 MG TAB.SR.24H PO SCH (09:53)
[2019-11-14] MEDS ORDERED: LEVORPHANOL TARTRATE PO SCH (10:00)
[2019-11-14] MEDS ORDERED: METOPROLOL SUCCINATE 50 MG TAB.SR.24H PO SCH (10:00)
[2019-11-14] MEDS ORDERED: (PENDING PHARMACY ID) (Cyanocobalamin (Vitamin B-12) [B-12] 2,500 MCG) SL SCH (10:00)
--- NOTE | 2019-11-14 11:10 | RADIOLOGY REPORT (SQ) ---
EXAM DESCRIPTION: U/S RETROPERITON (RENAL/AORTA) IMAGES COMPLETED DATE/TIME: 11/14/2019 10:36 am REASON FOR STUDY: renal failure COMPARISON: None. TECHNIQUE: Dynamic and static grayscale images acquired of the kidneys and bladder and recorded on P ACS. Additional selected color Doppler and spectral images recorded. LIMITATIONS: None. FINDINGS: RIGHT KIDNEY: Normal size. Normal echogenicity. No solid or suspicious masses. No hydronep hrosis. No calcifications. LEFT KIDNEY: Normal size. Incidental note is made of normal variant dromedary hump. Normal echogen icity. No solid or suspicious masses. No hydronephrosis. No calcifications. BLADDER: No masses. OTHER FINDINGS: No other significant finding. IMPRESSION: NORMAL RENAL AND BLADDER ULTRASOUND. TECHNICAL DOCUMENTATION: JOB ID: [id number] 2010 [employer] All Rights Reserved Reading location - IP/workstation name: [email or web address]
[2019-11-14] MEDS: LEVORPHANOL 2 MG PO SCH ×2 (14:41→21:57)
[2019-11-14] MEDS: GABAPENTIN 300 MG CAPSULE PO SCH ×2 (14:41→21:57)
[2019-11-14 18:18] LABS: APPEARANCE,URINE CLEAR; BILIRUBIN,URINE NEGATIVE (NEGATIVE); COLOR,URINE YELLOW; GLUCOSE, URINE NEGATIVE (NEGATIVE); KETONES,URINE NEGATIVE (NEGATIVE); LEUKOCYTE ESTERASE,URINE TRACE (NEGATIVE); NITRITE,URINE NEGATIVE (NEGATIVE); PROTEIN,URINE NEGATIVE (NEGATIVE); URINE SPECIFIC GRAVITY 1.019; UROBILINOGEN,URINE NEGATIVE mg/dL (<2.0)
--- NOTE | 2019-11-14 22:04 | PDOC CONSULTATION ---
Consultation Consult Date: 11/14/19 Provider Consulted: DIANNE VILLATORO Consult reason:: [facility] History of Present Illness Admission Date/PCP: 11/13/19 22:46 MIKE WEBER MD History of Present Illness: AUDIE PETERSEN is a 69 year old female with history of hypertension, GERD, fibromyalgia endometritis admitted yesterday for right olecranon bursitis. Apparently the patient initially went to the emergency room last Wednesday, November 10 for the same issue of right elbow pain with erythema and swelling and at that time she refused IV antibiotics so she was discharged home with oral clindamycin. However her right elbow got worse so she came back to the emergency room yesterday. Patient stated that the clindamycin made her feel fuzzy after taking only 5 doses. During this admission she was started on IV vancomycin and IV Unasyn. She states that she feels better. Patient was also evaluated by orthopedic surgeon, Dr. Wall surgical intervention was recommended. Blood cultures done on November 10 was positive for Staphylococcus species. Upon presentation the patient also presented with an elevated BUN of 33 and creatinine 1.34. Last Wednesday on November 10 she had a BUN of 19 and creatinine of 0.64. Today she has a BUN of 7 and creatinine of 1.52. Patient states that she never had any kidney disease in the past. She denies any kidney stones. She denies any problems with urination including note of any hematuria or foaminess in the urine. However she did notice that her urine volume has decreased since Wednesday but she also admits that she has not been drinking a lot of fluids since then. Her appetite has decreased as well. Otherwise she denies any nausea, vomiting, diarrhea, cough, abdominal pain, fever nor chills. Of note the patient said that last August she thought that she had a COVID-19 virus although she was not tested for mid. She said she was feeling sick and has called the [place] COVID-19 state number and she was just advised to stay home since she was not sick. She said it took her about 6 weeks to recover. Her urinalysis is negative for protein nor blood. A kidney ultrasound was unremarkable and normal. Her right kidney measures 9.56 cm and left kidney measures 11.42 cm. Past Medical History Cardiac Medical History: Reports: Hypertension-primary GI Medical History: Reports: Gastroesophageal Reflux Disease Musculoskeltal Medical History: Reports: Arthritis, Fibromyalgia Psychiatric Medical History: Reports: Depression Past Surgical History Past Surgical History: Reports: Cholecystectomy, Hysterectomy, Orthopedic Surgery - Left shoulder replacement, rotator cuff repair, bilateral knee replacement Social History Information Source: Patient Lives with: Spouse/Significant other Smoking Status: Current Every Day Smoker - She quit smoking couple months ago but then she restarted couple of days ago Cigarettes Packs Per Day: 1 Electronic Cigarette use?: No Number of Years Smokin Last Time Smoked: 11/13/19 Frequency of Alcohol Use: Rare Hx Recreational Drug Use: No Drugs: None Hx Prescription Drug Abuse: No Family History Family History: CAD - Father, DM - Maternal grandmother, Hypertension - Parents, Malignancy - Sister and blood cancer on her mother Parental Family History Reviewed: Yes Children Family History Reviewed: Yes Sibling(s) Family History Reviewed.: Yes Medication/Allergy Home Medications: Clindamycin HCl 300 mg PO TID #21 capsule 11/11/19 Albuterol Sulfate [Proventil Hfa] 1 puff PO Q4HP PRN 11/14/19 Cyanocobalamin (Vitamin B-12) [B-12] 2,500 mcg SL DAILY 11/14/19 Gabapentin [Neurontin 300 mg Capsule] 300 mg PO Q8 11/14/19 Levorphanol Tartrate 6 mg PO TID 11/14/19 Loratadine [Allergy Relief] 10 mg PO DAILY 11/14/19 Meloxicam [Mobic] 15 mg PO BID 11/14/19 Metoprolol Succinate [Toprol Xl 50 mg Tab.sr] 50 mg PO DAILY 11/14/19 Milnacipran HCl [Savella] 100 mg PO BID 11/14/19 Multivit-Min/Iron/Folic/Lutein [Centrum Silver Women Tablet] 1 each PO DAILY 11/14/19 Pantoprazole Sodium [Protonix [address] Tablet] 40 mg PO BID 11/14/19 Allergies/Adverse Reactions: celecoxib Allergy (Verified 11/13/19 17:35) duloxetine Allergy (Verified 11/13/19 17:35) naproxen Allergy (Verified 11/13/19 17:35) Review of Systems All systems: reviewed and no additional remarkable complaints except as stated Review of Systems: Constitutional: ABSENT: chills, fatigue, fever(s), headache(s), weight gain, weight loss; admits decreased appetite Eyes: ABSENT: visual disturbances Ears: ABSENT: hearing changes Cardiovascular: ABSENT: chest pain, dyspnea on exertion, edema, orthropnea, palpitations Respiratory: ABSENT: cough, dyspnea, hemoptysis Gastrointestinal: ABSENT: abdominal pain, constipation, diarrhea, hematemesis, hematochezia, nausea, vomiting Genitourinary: ABSENT: dysuria, hematuria Musculoskeletal: Admits: Right elbow joint swelling Integumentary: ABSENT: rash, wounds Neurological: ABSENT: abnormal gait, abnormal speech, confusion, dizziness, focal weakness, numbness, syncope Psychiatric: ABSENT: anxiety, depression Endocrine: ABSENT: cold intolerance, heat intolerance, polydipsia, polyuria Hematologic/Lymphatic: ABSENT: easy bleeding, easy bruising, lymphadenopathy Physical Exam Vital Signs: Temp Pulse Resp BP Pulse Ox 97.9 F 85 16 111/56 L 100 11/14/19 16:03 11/14/19 16:03 11/14/19 16:03 11/14/19 16:03 11/14/19 16:03 Intake & Output 11/13/19 11/14/19 11/15/19 06:59 06:59 06:59 Intake Total 1100 2070 Output Total 200 200 Balance 900 1870 Weight 87.3 kg Exam: General appearance: No acute distress, cooperative, well-developed, well-nou rished Head exam: PRESENT: atraumatic, normocephalic Eye exam: PRESENT: Conjunctiva [place], EOMI, PERRLA. ABSENT: conjunctival injection, scleral icterus Mouth exam: PRESENT: moist, neck supple, tongue midline Neck exam: PRESENT: full ROM. ABSENT: carotid bruit, JVD, lymphadenopathy, thyromegaly Respiratory exam: PRESENT: clear to auscultation bilaterally. ABSENT: rales, rhonchi, stridor, wheezes Cardiovascular exam: PRESENT: RRR, +S1, +S2. ABSENT: systolic murmur Pulses: PRESENT: normal radial pulses, normal dorsalis pedis pulses GI/Abdominal exam: PRESENT: normal bowel sounds, soft. ABSENT: guarding, mass, tenderness Rectal exam: Deferred Extremities exam: PRESENT: full ROM. Right elbow is swollen with surrounding erythema that was mapped out and it seems to have improved from the initial marker associated with some tenderness. ABSENT: calf tenderness, pedal edema Musculoskeletal: PRESENT: full ROM. ABSENT: deformity Neurological exam: PRESENT: alert, Awake, Oriented to person, Oriented to place, Oriented to time, reflexes normal, CN II-XII grossly intact. ABSENT: motor sens ory deficit Psychiatric exam: PRESENT: appropriate affect, normal mood. ABSENT: homicidal ideation, suicidal ideation Skin exam: PRESENT: intact, dry, warm. ABSENT: rash Results Laboratory Results: 11/14/19 05:36 11/13/19 23:18 11/13/19 11/14/19 11/14/19 23:18 05:36 17:55 WBC 10.0 RBC 3.95 Hgb 12.9 Hct 38.3 MCV 97 MCH 32.8 MCHC 33.8 RDW 13.4 Plt Count 240 Seg Neutrophils % 69.7 Sodium 134.6 L Potassium 4.3 Chloride 103 Carbon Dioxide 25 Anion Gap 7 BUN 37 H Creatinine 1.52 H Est GFR ( Amer) 41 L Glucose 136 H Calcium 8.9 Urine Color YELLOW Urine Appearance CLEAR Urine pH 5.0 Ur Specific [place] 1.019 Urine Protein NEGATIVE Urine Glucose (UA) NEGATIVE Urine Ketones NEGATIVE Urine Blood NEGATIVE Urine Nitrite NEGATIVE Ur Leukocyte Esterase TRACE H Urine WBC (Auto) 2 Urine RBC (Auto) 1 Impressions: Elbow X-Ray 11/13/19 17:32 IMPRESSION: Dorsal swelling over the olecranon. Possible bursitis. Renal Ultrasound 11/14/19 00:00 IMPRESSION: NORMAL RENAL AND BLADDER ULTRASOUND. Assessment & Plan - Diagnosis (1) Acute kidney injury Is this a current diagnosis for this admission?: Yes Plan: Patient is reportedly has decreased urine output with decreased oral intake. This is associated with no proteinuria nor hematuria. He still appears to be in acute prerenal azotemia due to decreased oral intake complicated by acute infection. Acute interstitial nephritis could be a differential diagnosis but appears less likely with bland urine sediment. Continue IV fluids and treat cu rrent infection. Continue to monitor kidney function and electrolytes. Patient does not need any renal replacement therapy. Will monitor. (2) Septic olecranon bursitis Qualifiers: Laterality: right Qualified Code(s): M71.121 - Other infective bursitis, right elbow Is this a current diagnosis for this admission?: Yes Plan: On IV antibiotics per Dr. Weber (3) Benign essential HTN Is this a current diagnosis for this admission?: Yes Plan: Adequately controlled. (4) Hyponatremia Is this a current diagnosis for this admission?: Yes Plan: Mild, can be due to volume depletion. - Notes Notes: Thank you very much for this consultation. We will follow with you. - Time Time Spent: 50 to 70 Minutes
[2019-11-15] MEDS: AMPICILLIN SODIUM/SULBACTAM NA 3 GM in NORMAL SALINE 100 ML IV SCH ×4 (02:54→20:01)
[2019-11-15] MEDS: OXYCODONE-ACETAMINOPHEN 5-325 MG TABLET PO PRN ×5 (03:03→21:43)
[2019-11-15] MEDS: GABAPENTIN 300 MG CAPSULE PO SCH ×3 (05:39→21:43)
[2019-11-15] MEDS: ONDANSETRON ODT 4 MG TAB (6 TAB/ER DISP) PO SCH ×3 (05:40→18:26)
[2019-11-15] MEDS: LEVORPHANOL 2 MG PO SCH ×3 (05:40→21:44)
[2019-11-15] MEDS: PANTOPRAZOLE SODIUM 20 MG TABLET.DR PO SCH (05:44)
[2019-11-15 05:46] LABS: ABSOLUTE BASOPHILS # (AUTO) 0.1 10^3/uL (0.0-0.2); ABSOLUTE EOSINOPHILS # (AUTO) 0.4 10^3/uL (0.0-0.6); ABSOLUTE LYMPHOCYTES (AUTO) 1.3 10^3/uL (0.5-4.7); ABSOLUTE MONOCYTES (AUTO) 0.8 10^3/uL (0.1-1.4); ABSOLUTE NEUT (AUTO) 5.1 10^3/uL (1.7-8.2); BASOPHILS % (AUTO) 0.7 % (0-2); EOSINOPHILS % (AUTO) 5.4 % (0-6); HEMATOCRIT 37.8 % (36.0-47.0); HEMOGLOBIN 12.8 g/dL (12.0-15.5); LYMPHOCYTES % (AUTO) 17.2 % (13-45); MEAN CORPUSCULAR HEMOGLOBIN 32.7 pg (27.0-33.4); MEAN CORPUSCULAR HGB CONC 33.9 g/dL (32.0-36.0); MEAN CORPUSCULAR VOLUME 96 fl (80-97); PLATELET COUNT 246 10^3/uL (150-450); RED BLOOD COUNT 3.92 10^6/uL (3.72-5.28); RED CELL DISTRIBUTION WIDTH 13.5 % (11.5-14.0); SEGMENTED NEUTROPHILS % (AUTO) 66.7 % (42-78); TOTAL CELLS COUNTED % (AUTO) 100 %; WHITE BLOOD COUNT 7.6 10^3/uL (4.0-10.5)
[2019-11-15 06:05] LABS: BLOOD UREA NITROGEN 23 mg/dL (7-20); CALCIUM 8.4 mg/dL (8.4-10.2); GLUCOSE 102 mg/dL (75-110); POTASSIUM 4.3 mmol/L (3.6-5.0)
[2019-11-15 06:11] LABS: ANION GAP 6 (5-19); CARBON DIOXIDE 28 mmol/L (22-30); CHLORIDE 105 mmol/L (98-107)
[2019-11-15] MEDS: NORMAL SALINE 1000 ML 1,000 ML IV PRN ×2 (06:35→20:05)
--- NOTE | 2019-11-15 08:26 | PDOC PROGRESS REPORT ---
Subjective Progress Note for:: 11/15/19 Subjective:: Patient is currently doing much better Patient's denied any chest pain no short of breath Patient redness on the arm is much improving Patient's white count is normal kidney function is back to the normal Reason For Visit: CELLULITIS Physical Exam Vital Signs: Temp Pulse Resp BP Pulse Ox 97.6 F 77 17 139/52 H 95 11/14/19 23:56 11/14/19 23:56 11/14/19 23:56 11/14/19 23:56 11/14/19 23:56 Intake & Output 11/14/19 11/15/19 11/16/19 06:59 06:59 06:59 Intake Total 1100 3090 Output Total 200 1750 Balance 900 1340 Weight 87.3 kg 90.5 kg General appearance: PRESENT: no acute distress, well-developed, well-nourished Head exam: PRESENT: atraumatic, normocephalic Eye exam: PRESENT: conjunctiva pink, EOMI, PERRLA. ABSENT: scleral icterus Ear exam: PRESENT: normal external ear exam Mouth exam: PRESENT: moist, tongue midline Neck exam: PRESENT: full ROM. ABSENT: carotid bruit, JVD, lymphadenopathy, thyromegaly Respiratory exam: PRESENT: clear to auscultation edu Cardiovascular exam: PRESENT: RRR. ABSENT: diastolic murmur, rubs, systolic murmur Pulses: PRESENT: normal dorsalis pedis pul, +2 pedal pulses bilateral Vascular exam: PRESENT: normal capillary refill GI/Abdominal exam: PRESENT: normal bowel sounds, soft. 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 ABSENT: motor sensory deficit Psychiatric exam: PRESENT: appropriate affect, normal mood. ABSENT: homicidal ideation, suicidal ideation Skin exam: PRESENT: dry, intact, warm. ABSENT: cyanosis, rash Results Laboratory Results: 11/15/19 04:48 11/15/19 04:48 11/14/19 11/15/19 11/15/19 17:55 04:48 04:48 WBC 7.6 RBC 3.92 Hgb 12.8 Hct 37.8 MCV 96 MCH 32.7 MCHC 33.9 RDW 13.5 Plt Count 246 Seg Neutrophils % 66.7 Sodium 138.5 Potassium 4.3 Chloride 105 Carbon Dioxide 28 Anion Gap 6 BUN 23 H Creatinine 0.71 Est GFR ( Amer) > 60 Glucose 102 Calcium 8.4 Urine Color YELLOW Urine Appearance CLEAR Urine pH 5.0 Ur Specific [place] 1.019 Urine Protein NEGATIVE Urine Glucose (UA) NEGATIVE Urine Ketones NEGATIVE Urine Blood NEGATIVE Urine Nitrite NEGATIVE Ur Leukocyte Esterase TRACE H Urine WBC (Auto) 2 Urine RBC (Auto) 1 Impressions: Elbow X-Ray 11/13/19 17:32 IMPRESSION: Dorsal swelling over the olecranon. Possible bursitis. Renal Ultrasound 11/14/19 00:00 IMPRESSION: NORMAL RENAL AND BLADDER ULTRASOUND. Assessment & Plan - Diagnosis (1) Cellulitis Qualifiers: Site of cellulitis of extremity: upper extremity Laterality: right Is this a current diagnosis for this admission?: Yes Plan: Continues IV antibiotic for another 24 hours (2) Benign essential HTN Is this a current diagnosis for this admission?: Yes Plan: Currently all stable continues to current medications (3) Renal failure Qualifiers: Renal failure chronicity: acute Is this a current diagnosis for this admission?: Yes Plan: Currently all resolved continues the IV fluid (4) Fibromyalgia Is this a current diagnosis for this admission?: Yes (5) Chronic pain syndrome Is this a current diagnosis for this admission?: Yes Plan: Continues the current pain medications (6) Arthritis Is this a current diagnosis for this admission?: Yes Plan: Currently hold the meloxicam due to the renal failure (7) Major depression Qualifiers: Major depression recurrence: unspecified whether recurrent Major depression episode severity: moderate Is this a current diagnosis for this admission?: Yes Plan: Continues to current medications (8) Chronic obstructive pulmonary disease Qualifiers: Emphysema type: unspecified Is this a current diagnosis for this admission?: Yes Plan: Continues the PRN nebulizer (9) Smoker Is this a current diagnosis for this admission?: Yes (10) Septic olecranon bursitis Qualifiers: Laterality: right Qualified Code(s): M71.121 - Other infective bursitis, right elbow Is this a current diagnosis for this admission?: Yes Plan: Follow-up with the outpatient Ortho (11) Positive blood culture Is this a current diagnosis for this admission?: Yes Plan: Patient subsequent blood culture is negative most likely has some contaminated - Time Time Spent with patient: 15-24 minutes Level of Care: MEDICAL Medications reviewed and adjusted accordingly: Yes Anticipated discharge: Home Within: within 24 hours - Plan Summary Plan Summary: Continues the IV antibiotic another 24-hour discussed with the patient about all test reports patient expressed to go home but I think patients can do more benefit with the IV antibiotic for next 24 hours will reevaluate the patient's tomorrow
[2019-11-15] MEDS: SULFAMETHOXAZOLE/TRIMETHOPRIM 800-160 MG TABLET PO SCH ×2 (09:47→21:43)
[2019-11-15] MEDS: LORATADINE 10 MG TABLET PO SCH (09:48)
[2019-11-15] MEDS: CYANOCOBALAMIN (VITAMIN B-12) 1,000 MCG TABLET PO SCH (09:48)
[2019-11-15] MEDS: METOPROLOL SUCCINATE 50 MG TAB.SR.24H PO SCH (09:48)
--- NOTE | 2019-11-15 10:23 | PDOC PROGRESS REPORT ---
Subjective Progress Note for:: 11/15/19 Subjective:: Patient is doing fairly well. She is feeling much better and her right elbow is getting significantly better. She is making good amount of urine. She has been active walking around the hallways. She is also eating better. She has no new complaints. Reason For Visit: CELLULITIS Physical Exam Vital Signs: Temp Pulse Resp BP Pulse Ox 97.3 F 94 18 140/84 H 95 11/15/19 07:25 11/15/19 07:25 11/15/19 07:25 11/15/19 07:25 11/15/19 07:25 Intake & Output 11/14/19 11/15/19 11/16/19 06:59 06:59 06:59 Intake Total 1100 3090 Output Total 200 1750 Balance 900 1340 Weight 87.3 kg 90.5 kg Exam: General appearance: PRESENT: no acute distress, cooperative, well-developed, well-nourished Head exam: PRESENT: atraumatic, normocephalic Eye exam: PRESENT: conjunctiva pink, PERRLA. ABSENT: scleral icterus Neck exam: ABSENT: JVD Respiratory exam: PRESENT: Normal breath sounds. ABSENT: crackles, rales, rhon chi, unlabored, wheezes Cardiovascular exam: PRESENT: Regular rate rhythm -+S1, +S2. ABSENT: diastolic murmur, systolic murmur GI/Abdominal exam: PRESENT: normal bowel sounds, soft. ABSENT: guarding, mass, tenderness Extremities exam: ABSENT: No edema; right elbow erythema, swelling and tenderness has significantly improved from yesterday Neurological exam: PRESENT: alert, awake, oriented to person, place and time. Skin exam: PRESENT: dry, warm, Results Laboratory Results: 11/15/19 04:48 11/15/19 04:48 11/14/19 11/15/19 11/15/19 17:55 04:48 04:48 WBC 7.6 RBC 3.92 Hgb 12.8 Hct 37.8 MCV 96 MCH 32.7 MCHC 33.9 RDW 13.5 Plt Count 246 Seg Neutrophils % 66.7 Sodium 138.5 Potassium 4.3 Chloride 105 Carbon Dioxide 28 Anion Gap 6 BUN 23 H Creatinine 0.71 Est GFR ( Amer) > 60 Glucose 102 Calcium 8.4 Urine Color YELLOW Urine Appearance CLEAR Urine pH 5.0 Ur Specific [place] 1.019 Urine Protein NEGATIVE Urine Glucose (UA) NEGATIVE Urine Ketones NEGATIVE Urine Blood NEGATIVE Urine Nitrite NEGATIVE Ur Leukocyte Esterase TRACE H Urine WBC (Auto) 2 Urine RBC (Auto) 1 Impressions: Elbow X-Ray 11/13/19 17:32 IMPRESSION: Dorsal swelling over the olecranon. Possible bursitis. Renal Ultrasound 11/14/19 00:00 IMPRESSION: NORMAL RENAL AND BLADDER ULTRASOUND. Assessment & Plan - Diagnosis (1) Acute kidney injury Is this a current diagnosis for this admission?: Yes Plan: Nonoliguric with good urine output. Kidney function is now back to baseline normal limits. (2) Septic olecranon bursitis Qualifiers: Laterality: right Qualified Code(s): M71.121 - Other infective bursitis, right elbow Is this a current diagnosis for this admission?: Yes Plan: Blood culture has Staphylococcus species. Patient still on IV Unasyn but starting on Bactrim DS per Dr. Weber. (3) Benign essential HTN Is this a current diagnosis for this admission?: Yes Plan: Adequately controlled. (4) Hyponatremia Is this a current diagnosis for this admission?: Yes Plan: Resolved. - Time Time with patient: 15-25 minutes
[2019-11-16] MEDS: ONDANSETRON ODT 4 MG TAB (6 TAB/ER DISP) PO SCH ×2 (00:12→05:47)
[2019-11-16] MEDS: AMPICILLIN SODIUM/SULBACTAM NA 3 GM in NORMAL SALINE 100 ML IV SCH (03:06)
[2019-11-16] MEDS: PANTOPRAZOLE SODIUM 20 MG TABLET.DR PO SCH (05:46)
[2019-11-16] MEDS: OXYCODONE-ACETAMINOPHEN 5-325 MG TABLET PO PRN (05:46)
[2019-11-16] MEDS: GABAPENTIN 300 MG CAPSULE PO SCH (05:47)
[2019-11-16] MEDS: LEVORPHANOL 2 MG PO SCH (05:47)
[2019-11-16 05:49] LABS: ABSOLUTE EOSINOPHILS # (AUTO) 0.3 10^3/uL (0.0-0.6); ABSOLUTE LYMPHOCYTES (AUTO) 1.4 10^3/uL (0.5-4.7); ABSOLUTE NEUT (AUTO) 5.1 10^3/uL (1.7-8.2); BASOPHILS % (AUTO) 0.5 % (0-2); EOSINOPHILS % (AUTO) 4.3 % (0-6); HEMATOCRIT 37.9 % (36.0-47.0); HEMOGLOBIN 12.9 g/dL (12.0-15.5); MEAN CORPUSCULAR HEMOGLOBIN 32.6 pg (27.0-33.4); MEAN CORPUSCULAR HGB CONC 33.9 g/dL (32.0-36.0); MEAN CORPUSCULAR VOLUME 96 fl (80-97); MONOCYTES % (AUTO) 12.2 % (3-13); PLATELET COUNT 261 10^3/uL (150-450); RED BLOOD COUNT 3.95 10^6/uL (3.72-5.28); RED CELL DISTRIBUTION WIDTH 13.3 % (11.5-14.0); TOTAL CELLS COUNTED % (AUTO) 100 %; WHITE BLOOD COUNT 7.9 10^3/uL (4.0-10.5)
[2019-11-16 05:52] LABS: ANION GAP 8 (5-19); BLOOD UREA NITROGEN 18 mg/dL (7-20); CALCIUM 8.3 mg/dL (8.4-10.2); CARBON DIOXIDE 27 mmol/L (22-30); CHLORIDE 104 mmol/L (98-107); GLUCOSE 94 mg/dL (75-110); POTASSIUM 4.4 mmol/L (3.6-5.0)
[2019-11-16 08:17] VITALS: BP 142/68
--- NOTE | 2019-11-16 09:25 | PDOC DISCHARGE SUMMARY ---
Impression - Admit/DC Date/PCP Admission Date/Primary Care Provider: 11/13/19 22:46 MIKE GONZALEZ MD Discharge Date: 11/16/19 - Discharge Diagnosis (1) Cellulitis Is this a current diagnosis for this admission?: Yes (2) Benign essential HTN Is this a current diagnosis for this admission?: Yes (3) Renal failure Is this a current diagnosis for this admission?: Yes (4) Fibromyalgia Is this a current diagnosis for this admission?: Yes (5) Chronic pain syndrome Is this a current diagnosis for this admission?: Yes (6) Arthritis Is this a current diagnosis for this admission?: Yes (7) Major depression Is this a current diagnosis for this admission?: Yes (8) Chronic obstructive pulmonary disease Is this a current diagnosis for this admission?: Yes (9) Smoker Is this a current diagnosis for this admission?: Yes (10) Septic olecranon bursitis Is this a current diagnosis for this admission?: Yes (11) Positive blood culture Is this a current diagnosis for this admission?: Yes - Additional Information Discharge Diet: Regular Discharge Activity: Activity As Tolerated, Balance Activity w/Rest Referrals: MIKE GONZALEZ MD [Primary Care Provider] - 11/24/19 11:30 am LEWIS RODRIGUEZ DO [ACTIVE STAFF] - 11/20/19 1:50 pm Prescriptions: Sulfamethoxazole/Trimethoprim [Septra-Ds 800-160 mg Tablet] 1 tab PO Q12 #20 tablet Home Medications: Albuterol Sulfate [Proventil Hfa] 1 puff PO Q4HP PRN 11/14/19 Cyanocobalamin (Vitamin B-12) [B-12] 2,500 mcg SL DAILY 11/14/19 Gabapentin [Neurontin 300 mg Capsule] 300 mg PO Q8 11/14/19 Levorphanol Tartrate 6 mg PO TID 11/14/19 Loratadine [Allergy Relief] 10 mg PO DAILY 11/14/19 Metoprolol Succinate [Toprol Xl 50 mg Tab.sr] 50 mg PO DAILY 11/14/19 Milnacipran HCl [Savella] 100 mg PO BID 11/14/19 Multivit-Min/Iron/Folic/Lutein [Centrum Silver Women Tablet] 1 each PO DAILY 11/14/19 Pantoprazole Sodium [Protonix [address] Tablet] 40 mg PO BID 11/14/19 Sulfamethoxazole/Trimethoprim [Septra-Ds 800-160 mg Tablet] 1 tab PO Q12 #20 tablet 11/16/19 History of Present Illiness History of Present Illness: AUDIE PETERSEN is a 69 year old female This is a 69-year-old female's with a history of the fibromyalgia chronic pain history of the hypertensions history of the major depression's history of the arthritis came to the emergency department 2 days back with a complaint for right elbow pain with diagnosed with olecranon bursitisAnd remove the fluid from there and patient have a some redness patient refused with IV antibiotic initially put in the clindamycin's Patient is back to the emergency department again because the redness is all increasing the more swelling patient is giving the 1 dose of vancomycin and start IV Unasyn and patient is feeling much better Patient is fluid from the elbow is no growth but 1 blood cultures positive for gram-positive Patient having no fever no chills patient's CRP is elevated white count is elevated Patient's kidney functions the creatinine is also elevated patient's last creatinine was 0.8 doing back in February in my office Patient's denied any chest pain no short of breath When I saw the patient in the floor patient is feeling much better patient seen by the orthopedic surgery suggest no need for any interventions Hospital Course Hospital Course: This is a 69-year-old female admitting in the hospital for the right elbow pain and olecranon bursitis and cellulitis Patient's failed to the clindamycin as outpatient patient was started on IV Unasyn and switch to the p.o. Bactrim and patient responds very well Since pain and the redness is pretty much all resolving patient seen by the orthopedic surgeon about olecranon bursa and suggest no need for any interventions follow outpatient Also have renal failure which currently resolved with IV fluids seen by the nephrology Was discharged with the p.o. Bactrim's All blood culture is negative's previous ER visit the cultures of Staphylococcus aureus was sensitive to the Bactrim and the patient fluid culture is also negative Patient is currently hold the meloxicam due to the recent renal failure patient also continues follow-up with the pain management follow outpatient Ortho and follow in office 1 week Patient's otherwise walking the hallway without any problems no fever no chills all blood work is stable Physical Exam Vital Signs: Temp Pulse Resp BP Pulse Ox 98.1 F 89 18 142/68 H 99 11/16/19 08:08 11/16/19 08:08 11/16/19 08:08 11/16/19 07:23 11/16/19 08:08 Intake & Output 11/15/19 11/16/19 11/17/19 06:59 06:59 06:59 Intake Total 3090 4025 Output Total 1750 Balance 1340 4025 Weight 90.5 kg 90.5 kg General appearance: PRESENT: no acute distress, well-developed, well-nourished Head exam: PRESENT: atraumatic, normocephalic Eye exam: PRESENT: conjunctiva pink, EOMI, PERRLA. ABSENT: scleral icterus Ear exam: PRESENT: normal external ear exam Mouth exam: PRESENT: moist, tongue midline Neck exam: ABSENT: carotid bruit, JVD, lymphadenopathy, thyromegaly Respiratory exam: PRESENT: clear to auscultation edu. ABSENT: rales, rhonchi, wheezes Cardiovascular exam: PRESENT: RRR. ABSENT: diastolic murmur, rubs, systolic murmur Pulses: PRESENT: normal dorsalis pedis pul Vascular exam: PRESENT: normal capillary refill GI/Abdominal exam: PRESENT: normal bowel sounds, soft. ABSENT: distended, guarding, mass, organolmegaly, rebound, tenderness Rectal exam: PRESENT: deferred Extremities exam: PRESENT: full ROM. ABSENT: calf tenderness, clubbing, pedal edema Neurological exam: PRESENT: alert, awake, oriented to person, oriented to place, oriented to time, oriented to situation, CN II-XII grossly intact. ABSENT: motor sensory deficit Psychiatric exam: PRESENT: appropriate affect, normal mood. ABSENT: homicidal ideation, suicidal ideation Skin exam: PRESENT: dry, intact, warm. ABSENT: cyanosis, rash Additional comments: Right elbow the redness is pretty much all improving Results Laboratory Results: WBC 7.9 10^3/uL (4.0-10.5) 11/16/19 04:49 RBC 3.95 10^6/uL (3.72-5.28) 11/16/19 04:49 Hgb 12.9 g/dL (12.0-15.5) 11/16/19 04:49 Hct 37.9 % (36.0-47.0) 11/16/19 04:49 MCV 96 fl (80-97) 11/16/19 04:49 MCH 32.6 pg (27.0-33.4) 11/16/19 04:49 MCHC 33.9 g/dL (32.0-36.0) 11/16/19 04:49 RDW 13.3 % (11.5-14.0) 11/16/19 04:49 Plt Count 261 10^3/uL (150-450) 11/16/19 04:49 Lymph % (Auto) 18.0 % (13-45) 11/16/19 04:49 [place] % (Auto) 12.2 % (3-13) 11/16/19 04:49 Eos % (Auto) 4.3 % (0-6) 11/16/19 04:49 Baso % (Auto) 0.5 % (0-2) 11/16/19 04:49 Absolute Neuts (auto) 5.1 10^3/uL (1.7-8.2) 11/16/19 04:49 Absolute Lymphs (auto) 1.4 10^3/uL (0.5-4.7) 11/16/19 04:49 Absolute Monos (auto) 1.0 10^3/uL (0.1-1.4) 11/16/19 04:49 Absolute Eos (auto) 0.3 10^3/uL (0.0-0.6) 11/16/19 04:49 Absolute Basos (auto) 0.0 10^3/uL (0.0-0.2) 11/16/19 04:49 Seg Neutrophils % 65.0 % (42-78) 11/16/19 04:49 ESR 74 mm/hr (0-30) H 11/13/19 17:31 Sodium 138.9 mmol/L (137-145) 11/16/19 04:49 Potassium 4.4 mmol/L (3.6-5.0) 11/16/19 04:49 Chloride 104 mmol/L (98-107) 11/16/19 04:49 Carbon Dioxide 27 mmol/L (22-30) 11/16/19 04:49 Anion Gap 8 (5-19) 11/16/19 04:49 BUN 18 mg/dL (7-20) 11/16/19 04:49 Creatinine 0.84 mg/dL (0.52-1.25) 11/16/19 04:49 Est GFR ( Amer) > 60 (>60) 11/16/19 04:49 Est GFR (MDRD) Non-Af > 60 (>60) 11/16/19 04:49 Glucose 94 mg/dL (75-110) 11/16/19 04:49 Calcium 8.3 mg/dL (8.4-10.2) L 11/16/19 04:49 Total Bilirubin 0.4 mg/dL (0.2-1.3) 11/13/19 17:45 Direct Bilirubin 0.2 mg/dL (0.0-0.4) 11/13/19 17:45 Neonat Total Bilirubin Not Reportable 11/13/19 17:45 Neonat Direct Bilirubin Not Reportable 11/13/19 17:45 Neonat Indirect Bili Not Reportable 11/13/19 17:45 AST 32 U/L (14-36) 11/13/19 17:45 ALT 29 U/L (<35) 11/13/19 17:45 Alkaline Phosphatase 114 U/L (38-126) 11/13/19 17:45 C-Reactive Protein 200.6 mg/L (<10.0) H 11/13/19 17:45 Total Protein 7.3 g/dL (6.3-8.2) 11/13/19 17:45 Albumin 4.3 g/dL (3.5-5.0) 11/13/19 17:45 Urine Color YELLOW 11/14/19 17:55 Urine Appearance CLEAR 11/14/19 17:55 Urine pH 5.0 (5.0-9.0) 11/14/19 17:55 Ur Specific [place] 1.019 11/14/19 17:55 Urine Protein NEGATIVE mg/dL (NEGATIVE) 11/14/19 17:55 Urine Glucose (UA) NEGATIVE mg/dL (NEGATIVE) 11/14/19 17:55 Urine Ketones NEGATIVE mg/dL (NEGATIVE) 11/14/19 17:55 Urine Blood NEGATIVE (NEGATIVE) 11/14/19 17:55 Urine Nitrite NEGATIVE (NEGATIVE) 11/14/19 17:55 Urine Bilirubin NEGATIVE (NEGATIVE) 11/14/19 17:55 Urine Urobilinogen NEGATIVE mg/dL (<2.0) 11/14/19 17:55 Ur Leukocyte Esterase TRACE (NEGATIVE) H 11/14/19 17:55 Urine WBC (Auto) 2 /HPF 11/14/19 17:55 Urine RBC (Auto) 1 /HPF 11/14/19 17:55 U Hyaline Cast (Auto) 1 /LPF 11/14/19 17:55 Squamous Epi Cells Auto 1 /HPF 11/14/19 17:55 Urine Mucus (Auto) RARE /LPF 11/14/19 17:55 Urine Ascorbic Acid NEGATIVE (NEGATIVE) 11/14/19 17:55 Impressions: Elbow X-Ray 11/13/19 17:32 IMPRESSION: Dorsal swelling over the olecranon. Possible bursitis. Renal Ultrasound 11/14/19 00:00 IMPRESSION: NORMAL RENAL AND BLADDER ULTRASOUND. Plan Time Spent: Greater than 30 Minutes - Follow in office 1 week follow-up with the orthopedic surgery Stroke Is this a Stroke Patient?: No Acute Heart Failure - Is this a Heart Failure Patient?: No
== END 2019-11-16 08:54 | disposition home or self-care (01) | DRG 558 ==
LOC: ER 17:14 → EH 22:46 → 4N 23:45
PROVIDERS: ADMIT Family Medicine; ATTEND Family Medicine
DX: M71.121 Other infective bursitis, right elbow (principal); L03.113 Cellulitis of right upper limb; N17.9 Acute kidney failure, unspecified; E87.1 Hypo-osmolality and hyponatremia; M79.7 Fibromyalgia; I10 Essential (primary) hypertension; F32.9 Major depressive disorder, single episode, unspecified; K21.9 Gastro-esophageal reflux disease without esophagitis; F17.210 Nicotine dependence, cigarettes, uncomplicated; G89.4 Chronic pain syndrome; J44.9 Chronic obstructive pulmonary disease, unspecified; M19.90 Unspecified osteoarthritis, unspecified site; Z90.49 Acquired absence of other specified parts of digestive tract; Z79.51 Long term (current) use of inhaled steroids; Z88.8 Allergy status to other drugs, medicaments and biological substances; Z96.612 Presence of left artificial shoulder joint; Z96.653 Presence of artificial knee joint, bilateral; Z90.710 Acquired absence of both cervix and uterus
CPT/HCPCS: 36415; 76770; 80048; 80053; 81001; 85025; 85652; 86140; 87040; 87070; 87075; 87077; 87086; 87150; 87186; 87205; 89050; 96361; 96365; 96366; 96372; 96374; 99283; 99291; J0295; J3370; J3490; J7030; J7050; J7120

== ENCOUNTER → 2020-04-02 | Outpatient (CLI) | payer MEDICARE ==
[2020-04-02 13:54] LABS: ABSOLUTE BASOPHILS # (AUTO) 0.1 10^3/uL (0.0-0.2); ABSOLUTE EOSINOPHILS # (AUTO) 0.2 10^3/uL (0.0-0.6); ABSOLUTE LYMPHOCYTES (AUTO) 0.9 10^3/uL (0.5-4.7); ABSOLUTE MONOCYTES (AUTO) 0.5 10^3/uL (0.1-1.4); ABSOLUTE NEUT (AUTO) 5.5 10^3/uL (1.7-8.2); BASOPHILS % (AUTO) 1.3 % (0-2); EOSINOPHILS % (AUTO) 2.6 % (0-6); HEMATOCRIT 25.9 % (36.0-47.0); LYMPHOCYTES % (AUTO) 13.2 % (13-45); MEAN CORPUSCULAR HEMOGLOBIN 31.5 pg (27.0-33.4); MEAN CORPUSCULAR HGB CONC 34.6 g/dL (32.0-36.0); MEAN CORPUSCULAR VOLUME 91 fl (80-97); MONOCYTES % (AUTO) 6.9 % (3-13); PLATELET COUNT 238 10^3/uL (150-450); RED BLOOD COUNT 2.85 10^6/uL (3.72-5.28); RED CELL DISTRIBUTION WIDTH 21.9 % (11.5-14.0); TOTAL CELLS COUNTED % (AUTO) 100 %; WHITE BLOOD COUNT 7.2 10^3/uL (4.0-10.5)
[2020-04-02 14:12] LABS: ANION GAP 6 (5-19); BLOOD UREA NITROGEN 30 mg/dL (7-20); CALCIUM 7.2 mg/dL (8.4-10.2); CARBON DIOXIDE 27 mmol/L (22-30); CHLORIDE 104 mmol/L (98-107); GLUCOSE 106 mg/dL (75-110); PHOSPHORUS 3.2 mg/dL (2.5-4.5); POTASSIUM 3.3 mmol/L (3.6-5.0)
[2020-04-02 14:13] LABS: URINE CREATININE 66.1 mg/dL (15-278)
[2020-04-02 17:55] LABS: UR PRO/CREAT RATIO RESULT 25.2 mg/mg (0.0-0.2); URINE PROTEIN 1662.5 mg/dL (<12)
== END ==
LOC: OD 12:45
PROVIDERS: ATTEND Internal Medicine Nephrology
DX: N18.30 Chronic kidney disease, stage 3 unspecified (principal)
CPT/HCPCS: 36415; 80069; 82570; 84156; 85025

== ENCOUNTER → 2020-04-08 | Outpatient (CLI) | payer MEDICARE ==
[2020-04-08 13:39] LABS: ABSOLUTE BASOPHILS # (AUTO) 0.1 10^3/uL (0.0-0.2); ABSOLUTE EOSINOPHILS # (AUTO) 0.2 10^3/uL (0.0-0.6); ABSOLUTE LYMPHOCYTES (AUTO) 0.8 10^3/uL (0.5-4.7); ABSOLUTE MONOCYTES (AUTO) 0.4 10^3/uL (0.1-1.4); ABSOLUTE NEUT (AUTO) 4.4 10^3/uL (1.7-8.2); BASOPHILS % (AUTO) 0.9 % (0-2); EOSINOPHILS % (AUTO) 4.1 % (0-6); HEMATOCRIT 26.2 % (36.0-47.0); HEMOGLOBIN 8.9 g/dL (12.0-15.5); LYMPHOCYTES % (AUTO) 14.2 % (13-45); MEAN CORPUSCULAR HEMOGLOBIN 31.9 pg (27.0-33.4); MEAN CORPUSCULAR VOLUME 94 fl (80-97); MONOCYTES % (AUTO) 6.9 % (3-13); PLATELET COUNT 399 10^3/uL (150-450); RED CELL DISTRIBUTION WIDTH 21.3 % (11.5-14.0); SEGMENTED NEUTROPHILS % (AUTO) 73.9 % (42-78); TOTAL CELLS COUNTED % (AUTO) 100 %; WHITE BLOOD COUNT 5.9 10^3/uL (4.0-10.5)
[2020-04-08 14:16] LABS: ALBUMIN 2.8 g/dL (3.5-5.0); ALKALINE PHOSPHATASE 77 U/L (38-126); ANION GAP 8 (5-19); ASPARTATE AMINO TRANSFERASE 30 U/L (14-36); BILIRUBIN,DIRECT 0.2 mg/dL (0.0-0.4); BILIRUBIN,TOTAL 0.4 mg/dL (0.2-1.3); BLOOD UREA NITROGEN 28 mg/dL (7-20); CARBON DIOXIDE 24 mmol/L (22-30); CHLORIDE 102 mmol/L (98-107); GLUCOSE 97 mg/dL (75-110); POTASSIUM 4.5 mmol/L (3.6-5.0); TOTAL PROTEIN 5.1 g/dL (6.3-8.2)
== END ==
LOC: OD 11:52
PROVIDERS: ATTEND Physician Assistant
DX: R60.0 Localized edema (principal); N18.31 Chronic kidney disease, stage 3a
CPT/HCPCS: 36415; 80053; 83735; 85025